=== PATIENT | male | born 1950 | race Caucasian/White ===

== ENCOUNTER 2017-03-27 12:36 | Inpatient (IN) ==
[2017-03-27] MEDS: Nitroglycerin 0.4 MG TAB.SUBL SL PRN ×3 (13:02→13:12)
[2017-03-27 13:11] LABS: Basophils # 0.1 K/mcL (0.0-0.2); Eosinophils # 0.5 K/mcL (0.0-0.6); Hematocrit 34.2 % (37.5-50.1); Immature Granulocytes % 0.3 % (0-4); Lymphocytes # 1.3 K/mcL (0.6-4.6); Lymphocytes % 18.5 %; Mean Corpuscular HGB Conc 32.2 g/dL (31.6-35.5); Mean Corpuscular Hemoglobin 29.3 pg (28.0-33.3); Mean Corpuscular Volume 91.2 fL (83.0-100.0); Mean Platelet Volume 9.7 fL (9.4-12.4); Monocytes # 0.6 K/mcL (0.0-1.3); Neutrophils # 4.6 K/mcL (1.6-8.9); Platelet Count 301 K/mcL (140-400); Red Blood Count 3.75 M/mcL (4.19-5.50); Red Cell Distribution Width 14.9 % (11.5-14.5); Segmented Neutrophils % 64.2 %
[2017-03-27 13:22] LABS: BUN/Creatinine Ratio 15 (6-26); Blood Urea Nitrogen 14 mg/dL (8-26); Calcium 8.5 mg/dL (8.6-10.8); Carbon Dioxide 25 mEq/L (19-29); Chloride 110 mEq/L (98-109); Glucose 90 mg/dL (70-99); Osmolality,Calculated 290 (280-300); Potassium 4.4 mEq/L (3.5-4.5); Sodium 140 mEq/L (136-145); eGFR For African Americans > 60 (> 60); eGFR For Non-African Americans > 60 (> 60)
--- NOTE | 2017-03-27 13:30 | Emergency Department Note ---
Disposition Clinical Impression: Dizziness Chest pain Qualifiers: Chest pain type: unspecified Qualified Code(s): R07.9 - Chest pain, unspecified Disposition: Admitted As Inpatient Condition: Good Time of Disposition: 14:37 General Adult HPI - General Chief complaint: ED Shortness of Breath/Dyspnea Stated complaint: CP, SOB, dizziness Time Seen by Provider: 03/27/17 12:43 Source: patient Mode of arrival: ambulatory Limitations: no limitations Nursing Notes Reviewed: Yes Vital Signs Reviewed: Yes - History of Present Illness HPI Narrative: 66-year-old male presenting to the emergency Department chief complaint of dizziness and chest pain. Patient has a significant past medical history MS and 2 stent placement in July 2015. Patient is currently on Proventil and an aspirin daily. Patient states today while he was standing in his driveway just prior to arrival he started feeling faint. He denies diaphoresis nausea or vomiting. Then while on his way to the emergency department he started having left-sided chest pain. The pain does not radiate down either arm. Patient denies any recent illnesses. Patient denies shortness of breath. Patient states these symptoms were different than his previous MS. His previous MS presented with left sided neck and jaw pain. Patient still states he is having chest pain at this time. Pain Scale: 0 - Related Data Home Medications Medication Instructions Recorded Confirmed Aspirin [Lo-Dose Aspirin EC] 81 mg PO DAILY 03/27/17 03/27/17 Brimonidine Tartrate/Timolol 1 drop BOTH EYES BID 03/27/17 03/27/17 [Combigan 0.2%-0.5% Eye Drops] Latanoprost [Xalatan] 1 drop BOTH EYES QPM 03/27/17 03/27/17 Lisinopril [Lisinopril] 2.5 mg PO DAILY 03/27/17 03/27/17 Ticagrelor [Brilinta] 60 mg PO BID 03/27/17 03/27/17 Allergies Allergy/AdvReac Type Severity Reaction Status Date / Time ciprofloxacin [From Cipro] Allergy Weakness Verified 03/27/17 12:41 All systems ED: reviewed and negative except as stated. Constitutional: Denies: fever, chills Eyes: Reports: as per HPI ENT ED: Reports: as per HPI Cardiovascular: Reports: chest pain. Denies: palpitations, dyspnea on exertion Respiratory: Denies: cough, dyspnea, wheezes Gastrointestinal: Denies: abdominal pain, nausea, vomiting Genitourinary: Reports: as per HPI Musculoskeletal: Reports: as per HPI Integumentary: Reports: as per HPI Neurological: Reports: weakness. Denies: numbness, paresthesias Psychiatric: Reports: as per HPI Endocrine: Reports: as per HPI Hematological/Lymphatic: Reports: as per HPI Allergic/Immunologic: Reports: as per HPI Past Medical History - Past Medical History Attestation: Yes The following information was validated with the patient. Medical history: Reports: RA Psychiatric history: Reports: no psych history - Social History Smoking Status: Former smoker Smokeless Tobacco Status: No Alcohol use: Reports: none Drug use: Reports: none Physical Exam - General General appearance: alert, in no apparent distress - Head Head exam: atraumatic, normocephalic, normal inspection - Chest Chest inspection: Present: normal inspection, symmetric chest wall rise. Absent : tenderness, rash - Respiratory Respiratory exam: Present: normal lung sounds bilaterally. Absent: respiratory distress, wheezes - Cardiovascular Cardiovascular exam: Present: regular rate, normal rhythm, normal heart sounds - Abdominal Exam Abdominal exam: Present: soft, Non-Tender. Absent: distention, guarding, rebound - Extremities Exam Extremities exam: Present: normal inspection, full ROM - Neurological Exam Neurological exam: Present: alert, oriented X3 - Psychiatric Psychiatric exam: Present: normal affect, normal mood - Skin Skin exam: Present: warm, intact Course Course Narrative: 66-year-old male with significant past medical history of previous MS presents to the emergency department with dizziness and chest pain. No chest pain workup including EKG, troponin, BNP, CBC, BMP. Patient is having chest pain at this time therefore we will also start a nitroglycerin trial. Patient already took his full dose aspirin this morning. - Reevaluation(s) Reevaluation #1: All the patient's lab work has come back within normal limits. Although the patient's heart score is greater than the usual admit the patient for cardiac chest pain rule out. Page out to the hospitalist has been completed. Patient now complaining of return of his chest pain. We will start a nitro drip. Time: 14:09 Reevaluation #2: Hospitalist Dr. Nguyen except the patient. He would like us to consult cardiology as well. A call to cardiology has been completed. Time: 14:24 Reevaluation #3: Spoke with the plant protection supervisor on-call Dr. Calhoun who would like us to start the patient on a heparin drip. He suggests trending troponin enzymes and completing an echo for this patient. Time: 14:36 Vital Signs Temperature 98.4 F 03/27/17 12:37 Pulse Rate 55 03/27/17 12:37 Respiratory Rate 18 03/27/17 12:37 Blood Pressure 133/83 03/27/17 12:37 O2 Sat by Pulse Oximetry 99 03/27/17 12:37 Temperature 98.4 F 03/27/17 19:28 Pulse Rate 52 03/27/17 19:28 Respiratory Rate 15 03/27/17 19:28 Blood Pressure 129/74 03/27/17 19:28 O2 Sat by Pulse Oximetry 96 03/27/17 20:18 Oxygen Delivery Oxygen Delivery Room Air Medical Decision Making - Medical Records Medical records reviewed: Yes I reviewed the patient's medical records. - Lab Data Lab results reviewed: Yes I reviewed the patient's lab results. Result diagrams: 03/27/17 12:58 03/27/17 12:58 Lab Results 03/27/17 03/27/17 03/27/17 Range/Units 12:58 12:58 12:58 WBC 7.1 (4.3-11.1) K/mcL RBC 3.75 L (4.19-5.50) M/mcL Hgb 11.0 L (12.9-16.9) g/dL Hct 34.2 L (37.5-50.1) % MCV 91.2 (83.0-100.0) fL MCH 29.3 (28.0-33.3) pg MCHC 32.2 (31.6-35.5) g/dL RDW 14.9 H (11.5-14.5) % Plt Count 301 (140-400) K/mcL MPV 9.7 (9.4-12.4) fL Immature Gran % 0.3 (0-4) % Seg Neutrophils % 64.2 % Lymphocytes % 18.5 % Monocytes % 9.0 % Eosinophils % 7.0 % Basophils % 1.0 % Neutrophils # 4.6 (1.6-8.9) K/mcL Lymphocytes # 1.3 (0.6-4.6) K/mcL Monocytes # 0.6 (0.0-1.3) K/mcL Eosinophils # 0.5 (0.0-0.6) K/mcL Basophils # 0.1 (0.0-0.2) K/mcL PT 12.3 H (9.4-12.1) Seconds INR 1.1 APTT 30.6 (26.0-36.0) Seconds Sodium 140 (136-145) mEq/L Potassium 4.4 (3.5-4.5) mEq/L Chloride 110 H (98-109) mEq/L Carbon Dioxide 25 (19-29) mEq/L BUN 14 (8-26) mg/dL Creatinine 0.93 (0.72-1.25) mg/dL Est GFR ( Amer) > 60 (> 60) Est GFR (Non-Af Amer) > 60 (> 60) BUN/Creatinine Ratio 15 (6-26) Glucose 90 (70-99) mg/dL Calculated Osmolality 290 (280-300) Calcium 8.5 L (8.6-10.8) mg/dL Troponin I (0-0.03) ng/mL 03/27/17 Range/Units 12:58 WBC (4.3-11.1) K/mcL RBC (4.19-5.50) M/mcL Hgb (12.9-16.9) g/dL Hct (37.5-50.1) % MCV (83.0-100.0) fL MCH (28.0-33.3) pg MCHC (31.6-35.5) g/dL RDW (11.5-14.5) % Plt Count (140-400) K/mcL MPV (9.4-12.4) fL Immature Gran % (0-4) % Seg Neutrophils % % Lymphocytes % % Monocytes % % Eosinophils % % Basophils % % Neutrophils # (1.6-8.9) K/mcL Lymphocytes # (0.6-4.6) K/mcL Monocytes # (0.0-1.3) K/mcL Eosinophils # (0.0-0.6) K/mcL Basophils # (0.0-0.2) K/mcL PT (9.4-12.1) Seconds INR APTT (26.0-36.0) Seconds Sodium (136-145) mEq/L Potassium (3.5-4.5) mEq/L Chloride (98-109) mEq/L Carbon Dioxide (19-29) mEq/L BUN (8-26) mg/dL Creatinine (0.72-1.25) mg/dL Est GFR ( Amer) (> 60) Est GFR (Non-Af Amer) (> 60) BUN/Creatinine Ratio (6-26) Glucose (70-99) mg/dL Calculated Osmolality (280-300) Calcium (8.6-10.8) mg/dL Troponin I 0.00 (0-0.03) ng/mL - Radiology Data Radiology results reviewed: Yes I reviewed the patient's radiology results. - EKG Data EKG #1 EKG attestation: Yes I reviewed and interpreted this EKG. EKG results narrative: Sinus bradycardia. 54 bpm. NH 189, QRS 92, QTC 379. Poor R-wave progression. Nonspecific EKG in V1 and 2 and 3. EKG #2 EKG attestation: Yes I reviewed and interpreted this EKG. EKG results narrative: Sinus bradycardia. 56 bpm. NH interval 166, QRS 91, QTC 393. Normal axis. Poor R-wave progression noted. Nonspecific changes in V1, V2, V3 previously seen in EKG completed 26 minutes prior. Attestation Statement - Attestation Attestation: I examined this patient and my medical decision-making was reviewed with the Resident Physician. I agree with the documented findings, disposition and treatment plan as described except to the extent set forth below. Chest pain, typical symptoms. EKG is currently without STEMI. Aspirin, heparin, nitroglycerin provided. Cardiac consultation initiated. Patiently admitted for further evaluation.
[2017-03-27 13:44] LABS: INR 1.1; Prothrombin Time 12.3 Seconds (9.4-12.1)
[2017-03-27 13:46] LABS: Activated Partial Thrombo Time 30.6 Seconds (26.0-36.0)
[2017-03-27] MEDS ORDERED: Nitroglycerin 25 MG/250 ML INFUS..BTL IVC SCH (14:15)
[2017-03-27] MEDS ORDERED: *HR* Heparin 5,000 UNIT/ML VIAL IVP ONE (14:35)
[2017-03-27] MEDS ORDERED: *HR* Heparin 5,000 UNIT/ML VIAL IVP PRN ×2 (14:35)
[2017-03-27] MEDS ORDERED: Heparin 25,000 UNIT/500 ML D5W 25,000 UNIT/500 ML MLS IVC SCH (14:45)
[2017-03-27] MEDS ORDERED: 0.9 % Sodium Chloride 1,000 ML ONE (15:11)
--- NOTE | 2017-03-27 15:53 | Internal Med History&Physical ---
Date of Encounter: 03/27/17 Time of Encounter: 15:50 Assessment and Plan (1) Coronary artery disease Current visit: Yes Status: Acute Continue aspirin, Brilinta. Start statin and beta dominic. Qualifiers: Coronary Disease-Associated Artery/Lesion type: [place] artery [place] vs. transplanted heart: [place] heart Associated angina: with unstable angina Qualified Code(s): I25.110 - Atherosclerotic heart disease of [place] coronary artery with unstable angina pectoris (2) Essential hypertension Current visit: Yes Status: Acute We will continue with lisinopril and uptitrate to goal. (3) Unstable angina Current visit: Yes Status: Acute Patient with recurrent chest pain, history of CAD with 2 stents. Start heparin drip. Start nitro drip. Trend troponin. Cardiology consult. Echocardiogram. Nothing by mouth for possible need for acute further testing tomorrow. (4) Anemia Current visit: Yes Status: Acute Qualifiers: Anemia type: unspecified type Qualified Code(s): D64.9 - Anemia, unspecified Internal Medicine - H&P: HPI Chief complaint: Chest pain Admitted From: Emergency Dept Plans for Post Hospital Care: Home History of present illness: Mr. Garay is a 66 year old male with history of CAD, status post [place] and 2 stents placed in July 2015. He reported shortness of breath that started late this morning and chest pain that started at 12 10 in the afternoon. Pain was located in the left upper chest, rated 6/10, aching, worse with ambulation and associated with shortness of breath. The pain resolved after administration of nitroglycerin, however it soon recurred and currently is 3/10. EKG was nondiagnostic, troponin was negative and ED. A 10 point review of systems was negative except per history of present illness. Family history: Positive for CHF in patient's father and stroke in the patient' s mother Social history: Reformed smoker quit one year and half ago, previously 1 pack a day smoker. Denies alcohol and drug use. Past Med Surg Social Fam HX - Past Medical History Medical history: RA Psychiatric history: no psych history - Social History Smoking Status: Former smoker Smokeless Tobacco Status: No Alcohol use: none Drug use: none Internal Medicine - H&P: Meds Aspirin [Lo-Dose Aspirin EC] 81 mg PO DAILY 03/27/17 [History] Brimonidine Tartrate/Timolol [Combigan 0.2%-0.5% Eye Drops] 1 drop BOTH EYES BID 03/27/17 [History] Latanoprost [Xalatan] 1 drop BOTH EYES QPM 03/27/17 [History] Lisinopril [Lisinopril] 2.5 mg PO DAILY 03/27/17 [History] Ticagrelor [Brilinta] 60 mg PO BID 03/27/17 [History] 3 Allergy/AdvReac Type Severity Reaction Status Date / Time ciprofloxacin [From Cipro] Allergy Weakness Verified 03/27/17 12:41 All Systems PM: A 10-system review of systems was performed and is negative for pertinent findings except as documented above in the HPI. - Constitutional Vitals: Temp Pulse Resp BP Pulse Ox 98.4 F 52 16 131/76 100 03/27/17 12:37 03/27/17 15:26 03/27/17 15:26 03/27/17 15:26 03/27/17 15:26 General appearance: Present: A&O X 3 - Eye Eye exam: Present: PERRL, conjuntiva pink, sclera anicteric Pupils: Present: PERRL - Respiratory Respiratory exam: Present: CTAB. Absent: accessory muscle use, rales, rhonchi, wheezes - Cardiovascular Cardiovascular exam: Present: bradycardia, +S1, +S2. Absent: diastolic murmur, gallop, rubs, systolic murmur - GI/Abdominal GI/Abdominal exam: Present: normal bowel sounds, soft, no peritoneal signs. Absent: distended, tenderness - Extremities Exam Extremities exam: Present: warm, radial pulses palpable and symmetrical. Absent : calf tenderness, cyanotic, pedal edema - Neurological Exam Neurological exam: Present: CN II-XII intact, oriented X3, no focal deficits. Absent: pronater drift, facial droop, speech deficit - Skin Skin exam: Present: dry, intact Internal Med - H&P Results - Labs CBC & Chem 7: 03/27/17 12:58 03/27/17 12:58 - EKG Data -: EKG Interpreted by Myself EKG shows normal: sinus rhythm, axis, intervals, QRS complexes, ST-T waves Rate: bradycardia
[2017-03-27] MEDS ORDERED: Naloxone 0.4 MG/ML INJ IVP PRN (17:16)
[2017-03-27] MEDS ORDERED: Ondansetron 4 MG/2 ML VIAL IVP PRN (17:16)
[2017-03-27] MEDS ORDERED: 0.9 % Sodium Chloride 1,000 ML IVC SCH (17:30)
[2017-03-27] MEDS: Latanoprost 2.5 ML BOTTLE BOTH EYES SCH (20:09)
[2017-03-27] MEDS: TICAGRELOR 60 MG PO SCH (20:12)
[2017-03-27] MEDS ORDERED: NON-FORMULARY MEDICATION 1 EACH EACH (Brimonidine Tartrate/Timolol [Combigan 0.2%-0.5% Eye BOTH EYES SCH (21:00)
[2017-03-27] MEDS: Acetaminophen 325 MG TABLET PO PRN (21:36)
[2017-03-28 01:32] LABS: Basophils # 0.1 K/mcL (0.0-0.2); Basophils % 1.1 %; Eosinophils # 0.5 K/mcL (0.0-0.6); Eosinophils % 7.8 %; Hemoglobin 9.8 g/dL (12.9-16.9); Immature Granulocytes % 0.5 % (0-4); Lymphocytes # 1.8 K/mcL (0.6-4.6); Lymphocytes % 27.9 %; Mean Corpuscular HGB Conc 32.7 g/dL (31.6-35.5); Mean Corpuscular Hemoglobin 29.3 pg (28.0-33.3); Mean Corpuscular Volume 89.8 fL (83.0-100.0); Mean Platelet Volume 9.8 fL (9.4-12.4); Monocytes # 0.7 K/mcL (0.0-1.3); Monocytes % 10.5 %; Neutrophils # 3.4 K/mcL (1.6-8.9); Platelet Count 289 K/mcL (140-400); Red Blood Count 3.34 M/mcL (4.19-5.50); Red Cell Distribution Width 14.8 % (11.5-14.5); Segmented Neutrophils % 52.2 %
[2017-03-28 01:50] LABS: % Iron Saturation 16 % (20-55); BUN/Creatinine Ratio 14 (6-26); Blood Urea Nitrogen 14 mg/dL (8-26); Calcium 8.7 mg/dL (8.6-10.8); Carbon Dioxide 24 mEq/L (19-29); Chloride 107 mEq/L (98-109); Chol/HDL Ratio 2.7 (0-4.9); Cholesterol 91 mg/dL (< 200); Glucose 114 mg/dL (70-99); HDL Cholesterol 34 mg/dL (40-59); Iron 43 mcg/dL (65-175); LDL Cholesterol,Calculated 46 mg/dL (0-99); Magnesium 1.6 mg/dL (1.6-2.6); Osmolality,Calculated 291 (280-300); Potassium 3.8 mEq/L (3.5-4.5); Sodium 140 mEq/L (136-145); Transferrin 192 mg/dL (174-364); Triglycerides 55 mg/dL (< 150); eGFR For African Americans > 60 (> 60); eGFR For Non-African Americans > 60 (> 60)
[2017-03-28] MEDS: Acetaminophen 325 MG TABLET PO PRN ×3 (04:43→16:46)
[2017-03-28] MEDS: *HR* Ticagrelor 90 MG TABLET PO SCH ×2 (10:16→22:11)
[2017-03-28] MEDS: Aspirin Enteric Coated 81 MG Tablet PO SCH (10:16)
--- NOTE | 2017-03-28 11:03 | Internal Med Progress Note ---
<Logan Keane - Last Filed: 03/28/17 17:16> Date of Encounter: 03/28/17 Time of Encounter: 08:30 - Assessment and plan (1) Chest pain Current Visit: Yes Status: Resolved Assessment and plan: Substernal chest pain, resolved 3 with shortness of breath or standing in chest pain at rest, relieved by nitroglycerin The patient did not have exertional symptoms Troponins were negative 3 EKG was within normal limits Stress echo completed by cardiology: Left ventricular ejection fraction 59%, negative for ischemia. TTE in the morning Cardiology has signed off Likely D/C tomorrow Qualifiers: Chest pain type: unspecified Qualified Code(s): R07.9 - Chest pain, unspecified (2) Coronary artery disease Current Visit: Yes Status: Chronic Assessment and plan: Known CAD with an STEMI and left heart catheterization 07/2015 Mehn[place] s/p stentx2 Echocardiogram pending, stress echo was negative for ischemia On aspirin, kathleen and Brilinta , not on beta dominic due to bradycardia Risks and benefits of statin will be discussed with patient in the morning Patient will follow up with cardiology as outpatient Qualifiers: Coronary Disease-Associated Artery/Lesion type: [place] artery [place] vs. transplanted heart: [place] heart Associated angina: with unspecified angina Qualified Code(s): I25.119 - Atherosclerotic heart disease of [place] coronary artery with unspecified angina pectoris (3) Essential hypertension Current Visit: Yes Status: Acute Assessment and plan: Blood pressure well controlled on current medication regimen (4) Anemia Current Visit: Yes Status: Acute Assessment and plan: Acute anemia, likely iron deficiency Patient reports no blood loss to his knowledge, no melena, no bright red blood per rectum Patient was on heparin at time of admission, transition back to brilinta We will check CBC in the morning, consider GI consult Qualifiers: Anemia type: unspecified type Qualified Code(s): D64.9 - Anemia, unspecified (5) DVT prophylaxis Current Visit: Yes Status: Acute Assessment and plan: Subcutaneous heparin - Subjective Interval history: The patient is resting comfortably in bed at time of examination, he has not had any chest pains overnight and shortness of breath is resolved. He says that the pain that he experiences not the same as the pain that he had previously with a [place]. - Constitutional Vitals: Temp Pulse Resp BP Pulse Ox 97.7 F 61 12 110/64 94 10/17/17 06:16 03/28/17 06:16 03/28/17 06:16 03/28/17 06:16 03/28/17 06:16 General appearance: Present: A&O X 3 - Head Head exam: Present: atraumatic, normocephalic - Eye Eye exam: Present: PERRL, conjuntiva pink, sclera anicteric Pupils: Present: PERRL - Neck Neck exam general surgery: Present: supple, trachea midline. Absent: lymphadenopathy - Respiratory Respiratory exam: Present: CTAB. Absent: accessory muscle use, rales, rhonchi, wheezes - Cardiovascular Cardiovascular exam: Present: RRR, +S1, +S2. Absent: diastolic murmur, gallop, rubs, systolic murmur - GI/Abdominal GI/Abdominal exam: Present: normal bowel sounds, soft, no peritoneal signs. Absent: distended, tenderness - Extremities Exam Extremities exam: Present: warm, radial pulses palpable and symmetrical. Absent : calf tenderness, cyanotic, pedal edema - Neurological Exam Neurological exam: Present: CN II-XII intact, oriented X3, no focal deficits. Absent: pronater drift, facial droop, speech deficit - Skin Skin exam: Present: dry, intact Internal Medicine: Result - Labs CBC & Chem 7: 03/28/17 01:08 03/28/17 01:08 Labs: Short CBC 03/28/17 Range/Units 01:08 WBC 6.5 (4.3-11.1) K/mcL Hgb 9.8 L (12.9-16.9) g/dL Hct 30.0 L (37.5-50.1) % Plt Count 289 (140-400) K/mcL Neutrophils # 3.4 (1.6-8.9) K/mcL BMP 03/28/17 01:08 Sodium 140 Potassium 3.8 Chloride 107 Carbon Dioxide 24 BUN 14 Creatinine 1.03 Glucose 114 H Calcium 8.7 Cardiac Enzymes 03/27/17 03/28/17 Range/Units 18:00 01:08 Troponin I 0.00 0.00 (0-0.03) ng/mL - ABG Interpretation ABG results: PT/INR, D-dimer PT 12.3 Seconds (9.4-12.1) H 03/27/17 12:58 Consult Discharge Plan - Plan Referrals: April Bauer MD [Partnered Physician] - (CARDIOLOGY OFFICE WILL CONTACT YOU WITH FOLLOW UP APPOINTMENT) Seven Calles DO [Primary Care Provider] - <GlennTobi A - Last Filed: 03/28/17 18:21> Date of Encounter: 03/28/17 - Assessment and plan (1) Unstable angina Current Visit: Yes Status: Acute (2) Essential hypertension Current Visit: Yes Status: Chronic (3) Coronary artery disease Current Visit: Yes Status: Chronic Qualifiers: Coronary Disease-Associated Artery/Lesion type: [place] artery [place] vs. transplanted heart: [place] heart Associated angina: with unstable angina Qualified Code(s): I25.110 - Atherosclerotic heart disease of [place] coronary artery with unstable angina pectoris (4) Anemia Current Visit: Yes Status: Acute Qualifiers: Anemia type: unspecified type Qualified Code(s): D64.9 - Anemia, unspecified - Constitutional Vitals: Temp Pulse Resp BP Pulse Ox 97.9 F 58 12 129/81 98 03/28/17 15:10 03/28/17 15:10 03/28/17 15:10 03/28/17 15:45 03/28/17 15:10 Internal Medicine: Result - Labs CBC & Chem 7: 03/28/17 01:08 03/28/17 01:08 Labs: Short CBC 03/28/17 Range/Units 01:08 WBC 6.5 (4.3-11.1) K/mcL Hgb 9.8 L (12.9-16.9) g/dL Hct 30.0 L (37.5-50.1) % Plt Count 289 (140-400) K/mcL Neutrophils # 3.4 (1.6-8.9) K/mcL BMP 03/28/17 01:08 Sodium 140 Potassium 3.8 Chloride 107 Carbon Dioxide 24 BUN 14 Creatinine 1.03 Glucose 114 H Calcium 8.7 Cardiac Enzymes 03/27/17 03/28/17 Range/Units 18:00 01:08 Troponin I 0.00 0.00 (0-0.03) ng/mL - ABG Interpretation ABG results: PT/INR, D-dimer PT 12.3 Seconds (9.4-12.1) H 03/27/17 12:58 - Attending Attestation I examined this patient and my medical decision-making was reviewed with the Resident Physician on 03/28/17. I agree with the documented findings, disposition and treatment plan as described except to the extent set forth below. Mr Garay is currently admitted for chest pain, [facility]. He remains moderate to high risk due to potential for worsening cardiac status. Mr Garay is currently pain free. No fever or chills. Had stress which is negative. To have echo today. Exam Alert Comfortable Hear reg No wheeze No edema I/P 1. [place] 2. CAD Further diagnoses and plan as above. Anticipate d/c tomorrow after echo reported.
[2017-03-28] MEDS: TICAGRELOR 60 MG PO SCH (11:20)
[2017-03-28] MEDS ORDERED: Regadenoson 0.4 MG/5 ML SYRINGE IVP ONE (11:51)
--- NOTE | 2017-03-28 12:52 | Cardiology Consult Note ---
Date of Encounter: 03/28/17 Time of Encounter: 10:00 Assessment and Plan (1) Chest pain Current Visit: Yes Status: Acute Per cardiology: -Admitted with shortness of breath while standing and chest pain while at rest. -Denies exertional symptoms -Troponins negative x3. -ECG with no acute ischemic changes. -Denies current chest pain. -Discussed at length with patient and . They are agreeable for low level nuclear stress test. Will order. -Further recommendations pending stress. Qualifiers: Chest pain type: unspecified Qualified Code(s): R07.9 - Chest pain, unspecified (2) Coronary artery disease Current Visit: Yes Status: Chronic Per cardiology: -Known CAD with NSTEMI and LHC 07/2015 at [facility]. Had intervention to proximal LAD, then underwent staged PCI to RCA and PDA. Has remaining moderate CAD. -Echo pending. -On asa, and brilinta, Not on beta dominic due to bradycardia. -No statin listed on medication list. -Echo pending. -Stress pending. -Will discuss with pateint and regarding statin therapy. -Further recommendations pending stress and echo. -Will continue to monitor. Qualifiers: Coronary Disease-Associated Artery/Lesion type: [place] artery [place] vs. transplanted heart: [place] heart Associated angina: with unspecified angina Qualified Code(s): I25.119 - Atherosclerotic heart disease of [place] coronary artery with unspecified angina pectoris Discussion w patient/family: The assessment and plan as outlined above was discussed with the patient and/or family members who expressed understanding and agreement. All questions were answered. Thank you for involving us in the care of your patient. Please call with any questions. Discussed and reviewed with . History of Present Illness Consult date: 03/27/17 Requesting physician: Aubrie Kapoor Consult reason: chest pain Chief complaint: shortness of breath History of present illness: Mr. Garay is a 66 year old male with a relevant past medical history of NSTEMI , CAD s/p PCI, RA, psoriatic arthritis. Patient presented to [facility] with complaints of shortness of breath. Patient states he was at home standing in the driveway when he became short of breath. Patient's started to drive patient to ER, on his way to ER he had left sided chest pain that radiated to left shoulder. Patient denies current shortness of breath or chest pain. Patient states at time of NSTEMI his symptoms were left sided jaw pain that radiated to left shoulder. Patient denies these symtpoms. Patient reports two days ago was able to weed eat for 2 hours without chest pain or shortness of breath. Past Med Surg Social Fam HX - Past Medical History Attestation: Yes The following information was validated with the patient. Source: patient, old records reviewed, obtained from family Medical history: coronary artery disease, RA Psychiatric history: no psych history - Social History Smoking Status: Former smoker Smokeless Tobacco Status: No Alcohol use: none Drug use: none Medications and Allergies Aspirin [Lo-Dose Aspirin EC] 81 mg PO DAILY 03/27/17 [History] Brimonidine Tartrate/Timolol [Combigan 0.2%-0.5% Eye Drops] 1 drop BOTH EYES BID 03/27/17 [History] Latanoprost [Xalatan] 1 drop BOTH EYES QPM 03/27/17 [History] Lisinopril [Lisinopril] 2.5 mg PO DAILY 03/27/17 [History] Ticagrelor [Brilinta] 60 mg PO BID 03/27/17 [History] 3 Allergy/AdvReac Type Severity Reaction Status Date / Time ciprofloxacin [From Cipro] Allergy Weakness Verified 03/27/17 12:41 All Systems Review: A 10-system review of systems was performed and is negative for pertinent findings except as documented above in the HPI. - Cardiovascular Cardiovascular: as per HPI, chest pain at rest, dyspnea at rest Physical Examination Vital Signs, Last 4 Hours Temp Pulse Resp BP Pulse Ox 03/28/17 11:59 98.0 F 58 12 109/63 96 General: Conversant, No Apparent Distress HEENT: Atraumatic, Normocephaly, Mucus Membranes Moist Neck: No JVD, Normal carotid pulses Cardiac: Reg Rate and Rhythm, Normal S1 and S2, No Murmur Lungs: Normal Breath Sounds, No Wheeze, Rales, Rhonchi Neuro: Alert and responsive, No focal deficits noted Abdomen: Soft, Non-Tender Skin: No rashes noted on visualized skin Musculoskeletal: No Chest Wall Tenderness Extremities: No Clubbing, No Cyanosis, No Edema, Normal Pulses Results 03/28/17 01:08 03/28/17 01:08 Lab Results Impressions Chest X-Ray 03/27/17 12:48 IMPRESSION: No acute process. D/ / Logan Benavidez MD / Logan Benavidez MD Interpreting Provider: Logan Benavidez MD Active Medications Acetaminophen (Tylenol) 650 mg PO Q6HR PRN PRN Reason: Mild Pain (1-3) Stop: 09/26/17 17:17 Last Admin: 03/28/17 10:15 Dose: 650 mg Aspirin (Aspirin Ec) 81 mg PO DAILY MANOHAR Stop: 09/27/17 09:01 Last Admin: 03/28/17 10:16 Dose: 81 mg Brimonidine Tartrate (Alphagan) 1 drop BOTH EYES BID MANOHAR Stop: 09/26/17 21:01 Last Admin: 03/28/17 11:20 Dose: 1 drop Heparin Sodium (Porcine) (Heparin) 4,000 unit IVP Q6HR PRN PRN Reason: SEE COMMENTS Stop: 09/26/17 14:36 Heparin Sodium (Porcine) (Heparin) 2,000 unit IVP Q6H PRN PRN Reason: SEE COMMENTS Stop: 09/26/17 14:36 Last Admin: 03/28/17 07:04 Dose: 2,000 unit Heparin Sodium/Dextrose (Heparin 25,000 Unit/500 Ml D5w) 25,000 unit in 500 mls @ 21.772 mls/hr IVC .[id number] MANOHAR; 12 UNIT/KG/HR PRN Reason: Protocol Stop: 09/26/17 14:46 Last Titration: 03/28/17 10:30 Dose: 0 unit/kg/hr, 0 mls/hr Latanoprost (Xalatan) 1 drop BOTH EYES QPM MANOHAR PRN Reason: Protocol Stop: 09/26/17 18:01 Last Admin: 03/27/17 20:09 Dose: Not Given Lisinopril (Zestril) 2.5 mg PO DAILY [facility] Stop: 09/27/17 09:01 Naloxone HCl (Narcan) 0.4 mg IVP Q2MIN PRN PRN Reason: Opioid Reversal Stop: 09/26/17 17:17 Nitroglycerin (Nitroglycerin) 0.4 mg SL Q5MIN PRN PRN Reason: Chest Pain Stop: 09/26/17 12:50 Last Admin: 03/27/17 13:12 Dose: 0.4 mg Ondansetron HCl (Zofran) 4 mg IVP Q8HR PRN PRN Reason: Nausea And Vomiting Stop: 09/26/17 17:17 Oxycodone HCl (Roxicodone) 5 mg PO Q6HR PRN PRN Reason: Moderate Pain (4-6) Stop: 09/26/17 17:17 Pharmacy Profile Note (Patient Taking Own Medication) 0 each PO BID [facility] Stop: 09/26/17 21:01 Last Admin: 03/28/17 11:20 Dose: Not Given Ticagrelor (Brilinta) 90 mg PO BID [facility] Stop: 09/27/17 09:46 Last Admin: 03/28/17 10:16 Dose: 90 mg Timolol Maleate (Timolol Maleate 0.5%) 1 drop BOTH EYES BID [facility] Stop: 09/26/17 21:01 Last Admin: 03/28/17 11:19 Dose: 1 drop Laboratory Tests 03/27/17 03/27/17 03/28/17 12:58 18:00 01:08 Hgb Creatinine Troponin I 0.00 0.00 0.00 03/28/17 03/28/17 01:08 01:08 Hgb 9.8 L Creatinine 1.03 Troponin I - Imaging and Cardiology Chest Xray: report reviewed Stress Test: pending Echo: pending Cardiac cath: report reviewed - EKG Interpretation EKG results cardiology: personally reviewed (ECG with SB, HR 54,), other ( Telemetry reviewed with average HR previous 12 hours noted to be 56, sinus bradycardia. PVCs and PACs noted.) Consult Discharge Plan - Plan Referrals: Seven Calles DO [Primary Care Provider] -
--- NOTE | 2017-03-28 12:54 | Electrocardiograph Report ---
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
--- NOTE | 2017-03-28 15:30 | Event Note ---
Date of Encounter: 03/28/17 Time of Encounter: 15:28 - Cardiology Event Note Stress test resulted. Gated EF 59%. Medium sized, moderate-severe intensity, fixed mid inferior, all apical segments and apex. Perfusion is slightly worse on rest imaging and wall motion appears normal. Findings suggestive of artifact. Perfusion imaging is negative for ischemia. Cardiology is signing off. Reconsult PRN. Follow-up as outpt with Dr. April Bauer. Will coordinate.
[2017-03-28] MEDS: Latanoprost 2.5 ML BOTTLE BOTH EYES SCH (22:12)
[2017-03-28] MEDS: *HR* OxyCODONE Immed Rel 5 MG TABLET PO PRN (22:15)
[2017-03-29 03:51] LABS: Basophils % 0.7 %; Eosinophils # 0.4 K/mcL (0.0-0.6); Eosinophils % 6.6 %; Hematocrit 30.9 % (37.5-50.1); Hemoglobin 10.2 g/dL (12.9-16.9); Immature Granulocytes % 0.3 % (0-4); Lymphocytes # 1.3 K/mcL (0.6-4.6); Lymphocytes % 22.4 %; Mean Corpuscular Hemoglobin 29.7 pg (28.0-33.3); Mean Corpuscular Volume 90.1 fL (83.0-100.0); Mean Platelet Volume 9.9 fL (9.4-12.4); Monocytes # 0.6 K/mcL (0.0-1.3); Monocytes % 10.6 %; Neutrophils # 3.5 K/mcL (1.6-8.9); Platelet Count 318 K/mcL (140-400); Red Blood Count 3.43 M/mcL (4.19-5.50); Red Cell Distribution Width 14.7 % (11.5-14.5); Segmented Neutrophils % 59.4 %
[2017-03-29 04:07] LABS: BUN/Creatinine Ratio 17 (6-26); Blood Urea Nitrogen 15 mg/dL (8-26); Carbon Dioxide 24 mEq/L (19-29); Chloride 107 mEq/L (98-109); Glucose 87 mg/dL (70-99); Osmolality,Calculated 286 (280-300); Potassium 4.1 mEq/L (3.5-4.5); Sodium 138 mEq/L (136-145); eGFR For African Americans > 60 (> 60); eGFR For Non-African Americans > 60 (> 60)
[2017-03-29 07:00] VITALS: BP 119/73
--- NOTE | 2017-03-29 08:08 | Event Note ---
Date of Encounter: 03/28/17 Time of Encounter: 17:40 - Cardiology Event Note I personally spoke with patient and regarding nuclear stress test results. All questions answered. Awaiting echo results. Will discuss echo results with pateint and family when available. Patient and state understanding.
[2017-03-29] MEDS: Aspirin Enteric Coated 81 MG Tablet PO SCH (09:14)
[2017-03-29] MEDS: *HR* Ticagrelor 90 MG TABLET PO SCH (09:14)
[2017-03-29] MEDS: *HR* OxyCODONE Immed Rel 5 MG TABLET PO PRN (09:15)
--- NOTE | 2017-03-29 10:31 | Discharge Summary ---
<Logan Keane - Last Filed: 03/29/17 16:03> Date of Encounter: 03/29/17 Time of Encounter: 08:15 - Discharge Diagnosis (1) Chest pain Priority: Primary Status: Resolved Qualifiers: Chest pain type: unspecified Qualified Code(s): R07.9 - Chest pain, unspecified (2) Coronary artery disease Priority: Secondary Status: Chronic Qualifiers: Coronary Disease-Associated Artery/Lesion type: [place] artery [place] vs. transplanted heart: [place] heart Associated angina: with unstable angina Qualified Code(s): I25.110 - Atherosclerotic heart disease of [place] coronary artery with unstable angina pectoris (3) Essential hypertension Priority: Secondary Status: Chronic (4) Anemia Priority: Secondary Status: Acute Qualifiers: Anemia type: unspecified type Qualified Code(s): D64.9 - Anemia, unspecified (5) DVT prophylaxis Priority: Secondary Status: Acute - Discharge Medications Prescriptions: Ticagrelor [Brilinta] 90 mg PO BID #30 tablet Home Medications: Aspirin [Lo-Dose Aspirin EC] 81 mg PO DAILY 03/27/17 [History] Brimonidine Tartrate/Timolol [Combigan 0.2%-0.5% Eye Drops] 1 drop BOTH EYES BID 03/27/17 [History] Latanoprost [Xalatan] 1 drop BOTH EYES QPM 03/27/17 [History] Lisinopril 2.5 mg PO DAILY 03/27/17 [History] Ticagrelor [Brilinta] 90 mg PO BID #30 tablet 03/29/17 [Rx] Allergies/Adverse Reactions: 3 Allergy/AdvReac Type Severity Reaction Status Date / Time ciprofloxacin [From Cipro] Allergy Weakness Verified 03/27/17 12:41 Procedures/tests Complete & Pending: Procedures Performed prior 72 hours Category Date Time Status NM anthony perf SPECT multi [NM] Routine Exams 03/28/17 12:10 Taken EV echocardiogram Routine Y 03/28/17 09:22 Completed SP pharm nuclear stress Routine Y 03/28/17 12:10 Completed Date of admission: 03/27/17 17:16 Primary care physician: Seven Calles DO Discharging clinician: Logan Keane Anticipated date of discharge: 03/29/17 - Patient Status Disposition: Home, Self-Care Condition: Good Functional capacity at discharge: independent ambulation Overall status at discharge: patient is progressing back to baseline - Discharge Instructions Instructions: Ticagrelor (By mouth), Chest Pain (DC) Follow Up With: April Bauer MD [Partnered Physician] - (CARDIOLOGY OFFICE WILL CONTACT YOU WITH FOLLOW UP APPOINTMENT) Seven Calles DO [Primary Care Provider] - 04/06/17 1:00 pm Additional Instructions: Follow up with PCP within one week Follow up with Cardiology as directed Brilinta 90mg Daily - Diet and Activity Activity: increase activity as tolerated Diet: low salt diet Hospital course: Mr. Garay is a 66 year old male with history of CAD, status post AK and 2 stents placed in July 2015. He reported shortness of breath that started late Monday morning the progress towards left-sided chest pain that lasted into the afternoon. The pain and shortness of breath seem worse with ambulation, and seemed to improve with nitroglycerin. EKG in the emergency department was nondiagnostic, troponins remained negative throughout the course. Patient was admitted for rule out of ACS. The patient was initially placed on heparin drip which was discontinued following repeated negative troponins. Repeat echo demonstrates left ventricular ejection fraction 60% with mild left ventricular diastolic dysfunction. Nuclear stress test demonstrated gaited EF 59%, and was negative for ischemia. Patient with reinitiated on brilinta, and a statin was initiated. The patient will be discharged for follow-up with cardiology outpatient. - Time Spent with Patient Total time spent providing and/or coordinating discharge services: - Constitutional Vitals: Temp Pulse Resp BP Pulse Ox 98.2 F 56 18 119/73 97 03/29/17 06:53 03/29/17 06:53 03/29/17 06:53 03/29/17 06:53 03/29/17 06:53 General appearance: Present: A&O X 3 - Head Head exam: Present: atraumatic, normocephalic - Eye Eye exam: Present: PERRL, conjuntiva pink, sclera anicteric Pupils: Present: PERRL - Neck Neck exam general surgery: Present: supple, trachea midline. Absent: lymphadenopathy - Respiratory Respiratory exam: Present: CTAB. Absent: accessory muscle use, rales, rhonchi, wheezes - Cardiovascular Cardiovascular exam: Present: RRR, +S1, +S2. Absent: diastolic murmur, gallop, rubs, systolic murmur - GI/Abdominal GI/Abdominal exam: Present: normal bowel sounds, soft, no peritoneal signs. Absent: distended, tenderness - Extremities Exam Extremities exam: Present: warm, radial pulses palpable and symmetrical. Absent : calf tenderness, cyanotic, pedal edema - Neurological Exam Neurological exam: Present: CN II-XII intact, oriented X3, no focal deficits. Absent: pronater drift, facial droop, speech deficit - Skin Skin exam: Present: dry, intact <Tobi Elizabeth - Last Filed: 03/29/17 16:42> Date of Encounter: 03/29/17 - Discharge Diagnosis (1) Unstable angina Priority: Primary Status: Acute (2) Essential hypertension Status: Chronic (3) Coronary artery disease Status: Chronic Qualifiers: Coronary Disease-Associated Artery/Lesion type: [place] artery [place] vs. transplanted heart: [place] heart Associated angina: with unstable angina Qualified Code(s): I25.110 - Atherosclerotic heart disease of [place] coronary artery with unstable angina pectoris (4) Anemia Status: Acute Qualifiers: Anemia type: unspecified type Qualified Code(s): D64.9 - Anemia, unspecified Procedures/tests Complete & Pending: Procedures Performed prior 72 hours Category Date Time Status NM anthony perf SPECT multi [NM] Routine Exams 03/28/17 12:10 Taken EV echocardiogram Routine Y 03/28/17 09:22 Completed SP pharm nuclear stress Routine Y 03/28/17 12:10 Completed Date of admission: 03/27/17 17:16 Primary care physician: Seven Calles DO Hospital course: Mr. Garay is a 66 year old male - Time Spent with Patient Total time spent providing and/or coordinating discharge services: 27min - Constitutional Vitals: Temp Pulse Resp BP Pulse Ox 98.2 F 56 18 119/73 97 03/29/17 06:53 03/29/17 06:53 03/29/17 06:53 03/29/17 06:53 03/29/17 06:53 - Attending Attestation I examined this patient and my medical decision-making was reviewed with the Resident Physician on 03/29/17. I agree with the documented findings, disposition and treatment plan as described except to the extent set forth below. Mr. Garay has been admitted for chest pain. He has prior hx of CAD and stents. He is afebrile with stable vitals. He is ready for discharge home. Exam Alert. Comfortable Mucus membrane dry Heart not tachy Lungs no wheeze Plan D/C home today Resume meds as before (Brlinta at 60mg BID - per cardiology as he is greater than one year out from stenting). Did not want flu vaccine.
--- NOTE | 2017-03-29 12:50 | Event Note ---
Date of Encounter: 03/29/17 Time of Encounter: 12:00 - Cardiology Event Note TTE with LEVF 60%, mild diastolic dysfunction, mild TR, mild IL, all haely with normal motion. TTE results discussed and reviewed with patient and . Again, cardiology will sign off and will follow in outpatient setting. Follow up set per cardiology office.
== END 2017-03-29 14:05 | disposition home or self-care (01) | DRG 303 ==
LOC: EMEROO 12:36 → 2NENU 12:36 → SUATTDRO 17:16
PROVIDERS: ADMIT Internal Medicine; ATTEND Internal Medicine

== ENCOUNTER 2017-09-28 15:49 | Inpatient (IN) ==
--- NOTE | 2017-09-28 16:11 | Emergency Department Note ---
Disposition Clinical Impression: Immunosuppressed status Fever Qualifiers: Encounter type: initial encounter UTI (urinary tract infection) Qualifiers: Urinary tract infection type: site unspecified Hematuria presence: with hematuria Qualified Code(s): N39.0 - Urinary tract infection, site not specified Disposition: Admitted As Inpatient Condition: Fair Time of Disposition: 17:39 General Adult HPI - General Chief complaint: ED Fever Stated complaint: Weakness,chills, just don't feel well,arthritis Time Seen by Provider: 09/28/17 16:10 Source: patient Limitations: no limitations Nursing Notes Reviewed: Yes Vital Signs Reviewed: Yes - History of Present Illness HPI Narrative: Mr. Garay presents from home for evaluation of abrupt onset chills and abrupt onset worsening of chronic arthritic pain. Onset this morning. Patient's pain is such that he preferred taking the elevator to his appointment with Dr. Arias, which is unusual as he prefers stairs. Joint pain is most prominent in right hip, BL kees, left foot and toew. Patient has a history of psoriatic arthritis. Last humara injection was 8 days ago. Discontinued methyltrexate 2.5 months ago while undergoing treatment for H. Pylori gastritis. Hx BPH; cystoscopy 2wks ago with planned de-bulking surgery in the future. ROS: Pos: chills, increasing joint pain. Neg: chest pain, dyspnea, diaphoresis, nausea, vomiting, abdominal pain, unusual back pain, burning with urination. No falls or open wounds. Pain Scale: 8 - Related Data Home Medications Medication Instructions Recorded Confirmed Aspirin [Lo-Dose Aspirin EC] 81 mg PO DAILY 03/27/17 09/28/17 Brimonidine Tartrate/Timolol 1 drop BOTH EYES BID 03/27/17 09/28/17 [Combigan 0.2%-0.5% Eye Drops] Latanoprost [Xalatan] 1 drop BOTH EYES QPM 03/27/17 09/28/17 Lisinopril 2.5 mg PO DAILY 03/27/17 09/28/17 Adalimumab [Humira] 40 mg SQ Q2W 07/27/17 09/28/17 Metoprolol XL (24 HR) Succ [Toprol 25 mg PO HS 07/27/17 09/28/17 XL] Allergies Allergy/AdvReac Type Severity Reaction Status Date / Time ciprofloxacin [From Cipro] Allergy Weakness Verified 09/28/17 16:57 ibuprofen [From Motrin] Allergy See Verified 09/28/17 16:57 Comments All systems ED: reviewed and negative except as stated. Review of Systems: As Per HPI Past Medical History - Past Medical History Medical history: Reports: arthritis, coronary artery disease, glaucoma, kidney stones, RA, other Surgical history: Reports: angioplasty/stent, appendectomy, herniorrhaphy Psychiatric history: Reports: no psych history - Social History Smoking Status: Former smoker Smokeless Tobacco Status: No Alcohol use: Reports: none Drug use: Reports: none Physical Exam Vital Signs Reviewed General: Patient is alert, oriented, and in no acute distress. Head: atraumatic, normocephalic Eye: normal appearance, no scleral icterus, no conjunctival injection ENT: mucous membranes moist, normal external ear exam Neck: normal inspection, trachea midline, full ROM Chest: normal inspection, symmetric chest rise Respiratory: Good respiratory effort. Bilateral breath sounds are clear without wheezing, crackles, or rhonchi. Cardiovascular: Regular rate and rhythm. No clicks, rubs, gallops, or murmors. Normal heart sounds. Abdomen: Bowel sounds present normoactive x-4 quadrants. Abdomen is soft, nondistended, and nontender. No guarding or rebound. No organomegaly noted. Musculoskeletal: Spontaneously moving all extremities. No erythema, swelling, or warmth over right hip/greater trochanger, bilateral knees, left ankle/foot/ toes. Skin: warm, dry, intact. Small psoriatic patches on patient's left dorsal foot - clean and intact, no surrounding erythema, warmth, or swelling. Neuro: Alert and oriented x4. Sensation light touch intact. Psych: Patient's affect is appropriate for situation. - General Limitations: no limitations General appearance: alert Course Course Narrative: Patient has fever currently without a source on physical exam. CXR unremarkable. UA concerning for UTI. Will begin IV rocephin. Given patient's current immonocompromised status, fever to 103F, and asymptomatic UTI , will admit for continued IV antibiotics with cultures pending. Patient and are in agreement to this plan. Chest X-Ray 09/28/17 16:37 IMPRESSION: No acute cardiopulmonary process D/ / Jose C Osorio MD / Jose C Osorio MD Interpreting Provider: Jose C Osorio MD Vital Signs Temperature 103 F H 09/28/17 16:00 Pulse Rate 93 09/28/17 16:00 Respiratory Rate 20 09/28/17 16:00 Blood Pressure 138/75 09/28/17 16:00 O2 Sat by Pulse Oximetry 99 09/28/17 16:00 Temperature 100.4 F H 09/28/17 18:38 Pulse Rate 77 09/28/17 18:29 Respiratory Rate 14 09/28/17 18:29 Blood Pressure 121/64 09/28/17 18:29 O2 Sat by Pulse Oximetry 96 09/28/17 18:29 Oxygen Delivery Oxygen Delivery Room Air Medical Decision Making - Lab Data Result diagrams: 09/28/17 16:38 09/28/17 16:38 Lab Results 09/28/17 09/28/17 09/28/17 Range/Units 16:38 16:38 16:49 WBC 17.7 H (4.3-11.1) K/mcL RBC 3.52 L (4.19-5.50) M/mcL Hgb 11.4 L (12.9-16.9) g/dL Hct 34.1 L (37.5-50.1) % MCV 96.9 (83.0-100.0) fL MCH 32.4 (28.0-33.3) pg MCHC 33.4 (31.6-35.5) g/dL RDW 14.5 (11.5-14.5) % Plt Count 340 (140-400) K/mcL MPV 9.6 (9.4-12.4) fL Immature Gran % 0.8 (0-4) % Seg Neutrophils % 87.1 % Lymphocytes % 4.6 % Monocytes % 7.2 % Eosinophils % 0.1 % Basophils % 0.2 % Neutrophils # 15.4 H (1.6-8.9) K/mcL Lymphocytes # 0.8 (0.6-4.6) K/mcL Monocytes # 1.3 (0.0-1.3) K/mcL Eosinophils # 0.0 (0.0-0.6) K/mcL Basophils # 0.0 (0.0-0.2) K/mcL Sodium 134 L (136-145) mEq/L Potassium 3.9 (3.5-5.1) mEq/L Chloride 101 (98-107) mEq/L Carbon Dioxide 24 (23-29) mEq/L BUN 24 H (8-23) mg/dL Creatinine 1.09 (0.70-1.30) mg/dL Est GFR ( Amer) > 60 (> 60) Est GFR (Non-Af Amer) > 60 (> 60) BUN/Creatinine Ratio 22 (6-26) Glucose 109 H (70-105) mg/dL Calculated Osmolality 283 (280-300) Lactic Acid 0.9 (0.5-2.2) mmol/L Calcium 9.2 (8.6-10.3) mg/dL Urine Color (Yellow) Urine Clarity (Clear) Urine pH (5.0-8.0) pH Units Ur Specific [place] (1.010-1.025) Urine Protein (Neg-Trace) mg/dL Urine Glucose (UA) (Normal) mg/dL Urine Ketones (Negative) mg/dL Urine Blood (Negative) Urine Nitrite (Negative) Urine Bilirubin (Negative) Urine Urobilinogen (Normal) mg/dL Ur Leukocyte Esterase (Negative) Urine Microscopic RBC (0-3) per hpf Urine Microscopic WBC (0-3) per hpf Ur Squamous Epith Cells (None-Few) per lpf Urine Bacteria (None-Few) per hpf Hyaline Casts (None-Few) per lpf 09/28/17 Range/Units 17:03 WBC (4.3-11.1) K/mcL RBC (4.19-5.50) M/mcL Hgb (12.9-16.9) g/dL Hct (37.5-50.1) % MCV (83.0-100.0) fL MCH (28.0-33.3) pg MCHC (31.6-35.5) g/dL RDW (11.5-14.5) % Plt Count (140-400) K/mcL MPV (9.4-12.4) fL Immature Gran % (0-4) % Seg Neutrophils % % Lymphocytes % % Monocytes % % Eosinophils % % Basophils % % Neutrophils # (1.6-8.9) K/mcL Lymphocytes # (0.6-4.6) K/mcL Monocytes # (0.0-1.3) K/mcL Eosinophils # (0.0-0.6) K/mcL Basophils # (0.0-0.2) K/mcL Sodium (136-145) mEq/L Potassium (3.5-5.1) mEq/L Chloride (98-107) mEq/L Carbon Dioxide (23-29) mEq/L BUN (8-23) mg/dL Creatinine (0.70-1.30) mg/dL Est GFR ( Amer) (> 60) Est GFR (Non-Af Amer) (> 60) BUN/Creatinine Ratio (6-26) Glucose (70-105) mg/dL Calculated Osmolality (280-300) Lactic Acid (0.5-2.2) mmol/L Calcium (8.6-10.3) mg/dL Urine Color Yellow (Yellow) Urine Clarity Turbid A (Clear) Urine pH 6.0 (5.0-8.0) pH Units Ur Specific [place] 1.022 (1.010-1.025) Urine Protein 30 H (Neg-Trace) mg/dL Urine Glucose (UA) Normal (Normal) mg/dL Urine Ketones Negative (Negative) mg/dL Urine Blood Moderate H (Negative) Urine Nitrite Positive A (Negative) Urine Bilirubin Negative (Negative) Urine Urobilinogen Normal (Normal) mg/dL Ur Leukocyte Esterase Large H (Negative) Urine Microscopic RBC 5-15 H (0-3) per hpf Urine Microscopic WBC TNTC H (0-3) per hpf Ur Squamous Epith Cells Moderate H (None-Few) per lpf Urine Bacteria Many H (None-Few) per hpf Hyaline Casts None Seen (None-Few) per lpf
[2017-09-28] MEDS ORDERED: Acetaminophen 325 MG TABLET PO ONE (16:37)
[2017-09-28] MEDS ORDERED: *HR* HYDROcodone/Acet 5/325 mg TABLET PO ONE (16:38)
[2017-09-28 16:52] LABS: Basophils % 0.2 %; Eosinophils % 0.1 %; Hematocrit 34.1 % (37.5-50.1); Hemoglobin 11.4 g/dL (12.9-16.9); Immature Granulocytes % 0.8 % (0-4); Lymphocytes # 0.8 K/mcL (0.6-4.6); Lymphocytes % 4.6 %; Mean Corpuscular HGB Conc 33.4 g/dL (31.6-35.5); Mean Corpuscular Hemoglobin 32.4 pg (28.0-33.3); Mean Corpuscular Volume 96.9 fL (83.0-100.0); Mean Platelet Volume 9.6 fL (9.4-12.4); Monocytes # 1.3 K/mcL (0.0-1.3); Monocytes % 7.2 %; Neutrophils # 15.4 K/mcL (1.6-8.9); Platelet Count 340 K/mcL (140-400); Red Blood Count 3.52 M/mcL (4.19-5.50); Red Cell Distribution Width 14.5 % (11.5-14.5); Segmented Neutrophils % 87.1 %
[2017-09-28 17:12] LABS: Bilirubin,Urine Negative (Negative); Blood,Urine Moderate (Negative); Clarity,Urine Turbid (Clear); Color,Urine Yellow (Yellow); Glucose,Urine (UA) Normal (Normal); Ketones,Urine Negative (Negative); Leukocyte Esterase,Urine Large (Negative); Nitrite,Urine Positive (Negative); Protein,Urine 30 mg/dL (Neg-Trace); Specific Gravity,Urine 1.022 (1.010-1.025); Urobilinogen,Urine Normal (Normal)
[2017-09-28 17:14] LABS: Bacteria,Urine Many per hpf (None-Few); Hyaline Casts,Urine None Seen per lpf (None-Few); Squamous Epithelial Cell,Urine Moderate per lpf (None-Few); WBC,Urine TNTC per hpf (0-3)
[2017-09-28] MEDS ORDERED: 0.9 % Sodium Chloride 1,000 ML IVC ONE (17:22)
[2017-09-28] MEDS ORDERED: cefTRIAXone 2,000 MG in Water for inj. (sterile) 20 ML 20 ML IVP ONE (17:35)
--- NOTE | 2017-09-28 17:36 | Emergency Department Note ---
Disposition Clinical Impression: Immunosuppressed status Fever Qualifiers: Encounter type: initial encounter UTI (urinary tract infection) Qualifiers: Urinary tract infection type: acute cystitis Hematuria presence: without hematuria Qualified Code(s): N30.00 - Acute cystitis without hematuria Disposition: Admitted As Inpatient Condition: Fair General Adult HPI - General Chief complaint: ED Fever Stated complaint: Weakness,chills, just don't feel well,arthritis Time Seen by Provider: 09/28/17 16:10 Source: patient Limitations: no limitations - History of Present Illness Pain Scale: 8 - Related Data Home Medications Medication Instructions Recorded Confirmed Aspirin [Lo-Dose Aspirin EC] 81 mg PO DAILY 03/27/17 09/28/17 Brimonidine Tartrate/Timolol 1 drop BOTH EYES BID 03/27/17 09/28/17 [Combigan 0.2%-0.5% Eye Drops] Latanoprost [Xalatan] 1 drop BOTH EYES QPM 03/27/17 09/28/17 Lisinopril 2.5 mg PO DAILY 03/27/17 09/28/17 Adalimumab [Humira] 40 mg SQ Q2W 07/27/17 09/28/17 Metoprolol XL (24 HR) Succ [Toprol 25 mg PO HS 07/27/17 09/28/17 XL] Allergies Allergy/AdvReac Type Severity Reaction Status Date / Time ciprofloxacin [From Cipro] Allergy Weakness Verified 09/28/17 16:57 ibuprofen [From Motrin] Allergy See Verified 09/28/17 16:57 Comments Past Medical History - Past Medical History Medical history: Reports: arthritis, coronary artery disease, glaucoma, kidney stones, RA, other Surgical history: Reports: angioplasty/stent, appendectomy, herniorrhaphy Psychiatric history: Reports: no psych history - Social History Smoking Status: Former smoker Smokeless Tobacco Status: No Alcohol use: Reports: none Drug use: Reports: none Physical Exam - General Limitations: no limitations General appearance: alert Course Vital Signs Temperature 103 F H 09/28/17 16:00 Pulse Rate 93 09/28/17 16:00 Respiratory Rate 20 09/28/17 16:00 Blood Pressure 138/75 09/28/17 16:00 O2 Sat by Pulse Oximetry 99 09/28/17 16:00 Temperature 103 F H 09/28/17 20:42 Pulse Rate 97 09/28/17 20:42 Respiratory Rate 18 09/28/17 20:42 Blood Pressure 160/77 09/28/17 20:42 O2 Sat by Pulse Oximetry 94 09/28/17 20:42 Oxygen Delivery Oxygen Delivery Room Air Medical Decision Making - Lab Data Result diagrams: 09/28/17 16:38 09/28/17 16:38 Lab Results 09/28/17 09/28/17 09/28/17 Range/Units 16:38 16:38 16:49 WBC 17.7 H (4.3-11.1) K/mcL RBC 3.52 L (4.19-5.50) M/mcL Hgb 11.4 L (12.9-16.9) g/dL Hct 34.1 L (37.5-50.1) % MCV 96.9 (83.0-100.0) fL MCH 32.4 (28.0-33.3) pg MCHC 33.4 (31.6-35.5) g/dL RDW 14.5 (11.5-14.5) % Plt Count 340 (140-400) K/mcL MPV 9.6 (9.4-12.4) fL Immature Gran % 0.8 (0-4) % Seg Neutrophils % 87.1 % Lymphocytes % 4.6 % Monocytes % 7.2 % Eosinophils % 0.1 % Basophils % 0.2 % Neutrophils # 15.4 H (1.6-8.9) K/mcL Lymphocytes # 0.8 (0.6-4.6) K/mcL Monocytes # 1.3 (0.0-1.3) K/mcL Eosinophils # 0.0 (0.0-0.6) K/mcL Basophils # 0.0 (0.0-0.2) K/mcL Sodium 134 L (136-145) mEq/L Potassium 3.9 (3.5-5.1) mEq/L Chloride 101 (98-107) mEq/L Carbon Dioxide 24 (23-29) mEq/L BUN 24 H (8-23) mg/dL Creatinine 1.09 (0.70-1.30) mg/dL Est GFR ( Amer) > 60 (> 60) Est GFR (Non-Af Amer) > 60 (> 60) BUN/Creatinine Ratio 22 (6-26) Glucose 109 H (70-105) mg/dL Calculated Osmolality 283 (280-300) Lactic Acid 0.9 (0.5-2.2) mmol/L Calcium 9.2 (8.6-10.3) mg/dL Urine Color (Yellow) Urine Clarity (Clear) Urine pH (5.0-8.0) pH Units Ur Specific [place] (1.010-1.025) Urine Protein (Neg-Trace) mg/dL Urine Glucose (UA) (Normal) mg/dL Urine Ketones (Negative) mg/dL Urine Blood (Negative) Urine Nitrite (Negative) Urine Bilirubin (Negative) Urine Urobilinogen (Normal) mg/dL Ur Leukocyte Esterase (Negative) Urine Microscopic RBC (0-3) per hpf Urine Microscopic WBC (0-3) per hpf Ur Squamous Epith Cells (None-Few) per lpf Urine Bacteria (None-Few) per hpf Hyaline Casts (None-Few) per lpf 09/28/17 Range/Units 17:03 WBC (4.3-11.1) K/mcL RBC (4.19-5.50) M/mcL Hgb (12.9-16.9) g/dL Hct (37.5-50.1) % MCV (83.0-100.0) fL MCH (28.0-33.3) pg MCHC (31.6-35.5) g/dL RDW (11.5-14.5) % Plt Count (140-400) K/mcL MPV (9.4-12.4) fL Immature Gran % (0-4) % Seg Neutrophils % % Lymphocytes % % Monocytes % % Eosinophils % % Basophils % % Neutrophils # (1.6-8.9) K/mcL Lymphocytes # (0.6-4.6) K/mcL Monocytes # (0.0-1.3) K/mcL Eosinophils # (0.0-0.6) K/mcL Basophils # (0.0-0.2) K/mcL Sodium (136-145) mEq/L Potassium (3.5-5.1) mEq/L Chloride (98-107) mEq/L Carbon Dioxide (23-29) mEq/L BUN (8-23) mg/dL Creatinine (0.70-1.30) mg/dL Est GFR ( Amer) (> 60) Est GFR (Non-Af Amer) (> 60) BUN/Creatinine Ratio (6-26) Glucose (70-105) mg/dL Calculated Osmolality (280-300) Lactic Acid (0.5-2.2) mmol/L Calcium (8.6-10.3) mg/dL Urine Color Yellow (Yellow) Urine Clarity Turbid A (Clear) Urine pH 6.0 (5.0-8.0) pH Units Ur Specific [place] 1.022 (1.010-1.025) Urine Protein 30 H (Neg-Trace) mg/dL Urine Glucose (UA) Normal (Normal) mg/dL Urine Ketones Negative (Negative) mg/dL Urine Blood Moderate H (Negative) Urine Nitrite Positive A (Negative) Urine Bilirubin Negative (Negative) Urine Urobilinogen Normal (Normal) mg/dL Ur Leukocyte Esterase Large H (Negative) Urine Microscopic RBC 5-15 H (0-3) per hpf Urine Microscopic WBC TNTC H (0-3) per hpf Ur Squamous Epith Cells Moderate H (None-Few) per lpf Urine Bacteria Many H (None-Few) per hpf Hyaline Casts None Seen (None-Few) per lpf Attestation Statement - Attestation Attestation: I examined this patient and my medical decision-making was reviewed with the P[employer] INSTRUCTOR/PA/Advanced Practice Nurse/Resident Physician. I agree with the documented findings, disposition and treatment plan as described except to the extent set forth below. The patient does have a temperature of 103 degrees however does not have hypotension and he is alert and oriented but somewhat flushed. He is here with his . Test results do show urinary tract infection and the patient will be started on antibiotics but due to his high fever and his concomitant immunosuppression with his rheumatoid arthritis and use of Humira the patient will be admitted and we will initiate Rocephin 2 g IV 1735
[2017-09-28 17:38] LABS: BUN/Creatinine Ratio 22 (6-26); Blood Urea Nitrogen 24 mg/dL (8-23); Calcium 9.2 mg/dL (8.6-10.3); Carbon Dioxide 24 mEq/L (23-29); Chloride 101 mEq/L (98-107); Glucose 109 mg/dL (70-105); Osmolality,Calculated 283 (280-300); Potassium 3.9 mEq/L (3.5-5.1); Sodium 134 mEq/L (136-145); eGFR For African Americans > 60 (> 60); eGFR For Non-African Americans > 60 (> 60)
--- NOTE | 2017-09-28 20:08 | Internal Med History&Physical ---
Date of Encounter: 09/28/17 Time of Encounter: 20:02 Assessment and Plan (1) Immunosuppressed status Current visit: Yes Status: Acute Patient is on Humira possible immunocompromise (2) UTI (urinary tract infection) Current visit: Yes Status: Acute Acute UTI probably due to BPH with some urinary retention will continue on Rocephin and send for blood culture and urine culture Qualifiers: Urinary tract infection type: acute cystitis Hematuria presence: without hematuria Qualified Code(s): N30.00 - Acute cystitis without hematuria (3) Coronary artery disease Current visit: No Status: Chronic Patient with history of 2 stents denies any chest pain at present Qualifiers: Coronary Disease-Associated Artery/Lesion type: [place] artery [place] vs. transplanted heart: [place] heart Associated angina: with unstable angina Qualified Code(s): I25.110 - Atherosclerotic heart disease of [place] coronary artery with unstable angina pectoris (4) Essential hypertension Current visit: No Status: Chronic Chronic and well controlled (5) Psoriatic arthritis Current visit: Yes Status: Acute Psoriatic arthritis with worsening pain in the right hip knee and foot was started him on nonsteroidal resume home medication (6) Leukocytosis Current visit: Yes Status: Acute Likely due to UTI and possible sepsis Qualifiers: Leukocytosis type: bandemia Qualified Code(s): D72.825 - Bandemia Internal Medicine - H&P: HPI Chief complaint: fever and chills Admitted From: Emergency Dept Plans for Post Hospital Care: Home History of present illness: Mr. Garay is a 66 year old male Patient with history of psoriatic arthritis on Humira, hypertension, CAD had 2 stents in the past, prior kidney stone, patient also has bladder dysfunction. Patient was seen at sampling expert office today in follow-up of worsening arthritis of the right hip, knee and foot but was having fever and chills and then was sent to the emergency room for further evaluation in emergency room temperature 103 evaluation show patient has UTI white count 17, 000 concern for possible sepsis from UTI patient and reports that he has difficulty urinating he has had BPH and was scheduled for procedure at the [facility] [place]. To shrink" the prostate. He does has some urinary retention does not want to see urologist here just wanted to be treated and then keep his appointment at the [facility] Past Med Surg Social Fam HX - Past Medical History Medical history: arthritis, coronary artery disease, glaucoma, kidney stones, RA , other Psychiatric history: no psych history - Past Surgical History Surgical History: angioplasty/stent, appendectomy, herniorrhaphy - Social History Smoking Status: Former smoker Smokeless Tobacco Status: No Alcohol use: none Drug use: none Internal Medicine - H&P: Meds Aspirin [Lo-Dose Aspirin EC] 81 mg PO DAILY 03/27/17 [History] Brimonidine Tartrate/Timolol [Combigan 0.2%-0.5% Eye Drops] 1 drop BOTH EYES BID 03/27/17 [History] Latanoprost [Xalatan] 1 drop BOTH EYES QPM 03/27/17 [History] Lisinopril 2.5 mg PO DAILY 03/27/17 [History] Adalimumab [Humira] 40 mg SQ Q2W 07/27/17 [History] Metoprolol XL (24 HR) Succ [Toprol XL] 25 mg PO HS 07/27/17 [History] 3 Allergy/AdvReac Type Severity Reaction Status Date / Time ciprofloxacin [From Cipro] Allergy Weakness Verified 09/28/17 16:57 ibuprofen [From Motrin] Allergy See Verified 09/28/17 16:57 Comments All Systems PM: A 10-system review of systems was performed and is negative for pertinent findings except as documented above in the HPI. - Constitutional Constitutional: chills, fever(s) - EENT Eyes: no change in vision, no discharge, no pain, no photophobia Ears: no ear discharge, no ear pain, no tinnitus Nose, mouth and throat: no dysphagia, no nasal discharge, no neck pain, no sore throat - Cardiovascular Cardiovascular ROS IM: no chest pain, no diaphoresis, no dyspnea, no lightheadedness, no palpitations, no syncope - Respiratory Respiratory: no cough, no dyspnea, no wheezing, no excessive phlegm production - Gastrointestinal Gastrointestinal: no abdominal pain, no diarrhea, no hematemesis, no hematochezia, no melena, no nausea, no vomiting - Musculoskeletal Musculoskeletal ROS IM: no numbness, no tingling - Integumentary Integumentary IM: no rash, no unusual bruising - Constitutional Vitals: Temp Pulse Resp BP Pulse Ox 100.4 F H 77 14 121/64 96 09/28/17 18:38 09/28/17 18:29 09/28/17 18:29 09/28/17 18:29 09/28/17 18:29 General appearance: Present: mild distress - Head Head exam: Present: atraumatic, normocephalic - Neck Neck exam general surgery: Present: supple, trachea midline. Absent: lymphadenopathy - Respiratory Respiratory exam: Present: CTAB. Absent: accessory muscle use, rales, rhonchi, wheezes - Cardiovascular Cardiovascular exam: Present: RRR, +S1, +S2. Absent: diastolic murmur, gallop, rubs, systolic murmur - GI/Abdominal GI/Abdominal exam: Present: normal bowel sounds, soft, no peritoneal signs. Absent: distended, tenderness Internal Med - H&P Results - Labs CBC & Chem 7: 09/28/17 16:38 09/28/17 16:38
[2017-09-28] MEDS ORDERED: Naloxone 0.4 MG/ML INJ IVP PRN (20:16)
[2017-09-28] MEDS ORDERED: TIMOLOL OP SCH (21:00)
[2017-09-28] MEDS ORDERED: BRIMONIDINE TARTRATE OP SCH (21:00)
[2017-09-28] MEDS: Metoprolol XL (24 HR) Succ 25 MG TAB.ER.24H PO SCH (21:12)
[2017-09-28] MEDS: traMADol 50 MG TABLET PO PRN (21:12)
[2017-09-28] MEDS: Acetaminophen 325 MG TABLET PO PRN (21:12)
[2017-09-28] MEDS: 0.9 % Sodium Chloride 1,000 ML IVC SCH (21:13)
[2017-09-29] MEDS: Acetaminophen 325 MG TABLET PO PRN ×3 (02:27→23:33)
[2017-09-29] MEDS: Latanoprost 2.5 ML BOTTLE BOTH EYES SCH ×2 (03:03→21:52)
[2017-09-29] MEDS: traMADol 50 MG TABLET PO PRN (04:25)
[2017-09-29] MEDS: *HR* Enoxaparin 40 MG/0.4 ML SYRINGE SQ SCH (05:49)
[2017-09-29 06:13] LABS: Hematocrit 32.1 % (37.5-50.1); Hemoglobin 10.9 g/dL (12.9-16.9); Mean Corpuscular Hemoglobin 32.4 pg (28.0-33.3); Mean Corpuscular Volume 95.5 fL (83.0-100.0); Platelet Count 330 K/mcL (140-400); Red Blood Count 3.36 M/mcL (4.19-5.50); Red Cell Distribution Width 14.5 % (11.5-14.5)
[2017-09-29 06:32] LABS: Alanine Aminotransferase 9 Units/L (7-52); Albumin 3.4 g/dL (3.5-5.7); Albumin/Globulin Ratio 1.1 (1.1-2.2); Alkaline Phosphatase 49 Units/L (34-104); Aspartate Amino Transferase 12 Units/L (13-39); BUN/Creatinine Ratio 23 (6-26); Bilirubin,Total 0.3 mg/dL (0.3-1.0); Blood Urea Nitrogen 29 mg/dL (8-23); Calcium 8.4 mg/dL (8.6-10.3); Carbon Dioxide 21 mEq/L (23-29); Chloride 104 mEq/L (98-107); Chol/HDL Ratio 1.7 (0-4.9); Cholesterol 69 mg/dL (< 200); Globulin 3.1 g/dL (2.4-3.5); Glucose 123 mg/dL (70-105); HDL Cholesterol 41 mg/dL (40-59); LDL Cholesterol,Calculated 18 mg/dL (0-99); Magnesium 1.5 mg/dL (1.6-2.6); Osmolality,Calculated 281 (280-300); Potassium 3.7 mEq/L (3.5-5.1); Sodium 132 mEq/L (136-145); Total Protein 6.5 g/dL (6.4-8.9); Triglycerides 51 mg/dL (< 150); eGFR For African Americans > 60 (> 60); eGFR For Non-African Americans 56 (> 60)
--- NOTE | 2017-09-29 07:50 | Urology - Consult Note ---
Date of Encounter: 09/29/17 Time of Encounter: 07:47 - Assessment and Plan (1) Urinary retention Current Visit: Yes Status: Acute Assessment and plan: 66-year-old man with a history of urinary retention. I was able to place a 16- [place] coude catheter. Clear urine returned. I informed the patient that I am not on-call this weekend and it is Dr. Real. If there are other urologic issues, management would need to be coordinated by the primary team as the patient refuses to see the current on-call urologist. Alternatively, consider transfer if there are other urologic issues which need more immediate attention. I would continue the catheter throughout his hospital stay and have him follow-up with his outside urologist for a possible voiding trial or continuation the catheter through the date of his TUNA. (2) UTI (urinary tract infection) Current Visit: Yes Status: Acute Assessment and plan: We will await results from a urine culture now that the catheter is placed. Please call me with any questions, I will be available on 10/02/2017 at 7 AM for further management. Qualifiers: Urinary tract infection type: acute cystitis Hematuria presence: without hematuria Qualified Code(s): N30.00 - Acute cystitis without hematuria Urology CN:HPI Consult date: 09/29/17 Reason for consult Urology: Other (? UTI with sepsis) Requesting physician: Christi Granda History of present illness: 66-year-old man was admitted for fevers. He has a history of BPH and incomplete bladder emptying. A CT scan from July, showed concern for enlarged prostate with multiple bladder diverticula. He has been feeling unwell and was admitted to the hospital with fever and elevated white blood cell count. She has not been able to urinate. He was present seen by Dr. Real with [facility]. Per his report the experience was not to his satisfaction and he proceeded to seek care from an outside urologist at [facility], Dr. De La Cruz. He is scheduled for a TUNA. A bladder scan showed greater than 1000. Past Med Surg Social Fam HX - Past Medical History Medical history: arthritis, coronary artery disease, glaucoma, kidney stones, RA , other Psychiatric history: no psych history - Past Surgical History Surgical History: angioplasty/stent, appendectomy, herniorrhaphy - Social History Smoking Status: Former smoker Smokeless Tobacco Status: No Alcohol use: none Drug use: none - Family History Father Hx Family Cardiac Disorders: Yes (CHF) Mother Hx Family Cardiac Disorders: Yes (Stroke) Medications and Allergies Aspirin [Lo-Dose Aspirin EC] 81 mg PO DAILY 03/27/17 [History] Brimonidine Tartrate/Timolol [Combigan 0.2%-0.5% Eye Drops] 1 drop BOTH EYES BID 03/27/17 [History] Latanoprost [Xalatan] 1 drop BOTH EYES QPM 03/27/17 [History] Lisinopril 2.5 mg PO DAILY 03/27/17 [History] Adalimumab [Humira] 40 mg SQ Q2W 07/27/17 [History] Metoprolol XL (24 HR) Succ [Toprol XL] 25 mg PO HS 07/27/17 [History] 3 Allergy/AdvReac Type Severity Reaction Status Date / Time ciprofloxacin [From Cipro] Allergy Weakness Verified 09/28/17 16:57 ibuprofen [From Motrin] Allergy See Verified 09/28/17 16:57 Comments Review of Systems - Constitutional chills, fever(s) - EENT Nose, mouth and throat: no dizziness - Cardiovascular no chest pain - Respiratory no dyspnea - Gastrointestinal no nausea, no vomiting - Genitourinary no flank pain, no hematuria - Musculoskeletal no back pain - Integumentary no erythema, no rash - Neurological no weakness - Psychiatric no suicidal ideation - Hematologic/Lymphatic no easy bleeding - Allergic/Immunologic no wheezing Exam Initial Vital Signs Temp Pulse Resp BP Pulse Ox 103 F H 93 20 138/75 99 09/28/17 16:00 09/28/17 16:00 09/28/17 16:00 09/28/17 16:00 09/28/17 16:00 - General physical appearance Present: well developed, well nourished, no distress - Eyes Absent: icteric - ENT Present: normal nares - Neck Present: trachea midline - Respiratory Present: normal respiratory effort - Cardiovascular Cardiovascular exam IM: RRR - Abdomen Abdomen: Present: soft, distended (suprapubic distension) - Genitourinary normal penis with no external lesions - Integumentary Present: no rash - Neurologic Present: normal coordination - Musculoskeletal Present: other (normal extremities.) Urology Results - Labs 09/29/17 05:35 09/29/17 05:35 Abnormal lab results WBC 16.3 K/mcL (4.3-11.1) H 09/29/17 05:35 RBC 3.36 M/mcL (4.19-5.50) L 09/29/17 05:35 Hgb 10.9 g/dL (12.9-16.9) L 09/29/17 05:35 Hct 32.1 % (37.5-50.1) L 09/29/17 05:35 Neutrophils # 15.4 K/mcL (1.6-8.9) H 09/28/17 16:38 Sodium 132 mEq/L (136-145) L 09/29/17 05:35 Carbon Dioxide 21 mEq/L (23-29) L 09/29/17 05:35 BUN 29 mg/dL (8-23) H 09/29/17 05:35 Est GFR (Non-Af Amer) 56 (> 60) L 09/29/17 05:35 Glucose 123 mg/dL (70-105) H 09/29/17 05:35 Calcium 8.4 mg/dL (8.6-10.3) L 09/29/17 05:35 Magnesium 1.5 mg/dL (1.6-2.6) L 09/29/17 05:35 AST 12 Units/L (13-39) L 09/29/17 05:35 Albumin 3.4 g/dL (3.5-5.7) L 09/29/17 05:35 Urine Clarity Turbid (Clear) A 09/28/17 17:03 Urine Protein 30 mg/dL (Neg-Trace) H 09/28/17 17:03 Urine Blood Moderate (Negative) H 09/28/17 17:03 Urine Nitrite Positive (Negative) A 09/28/17 17:03 Ur Leukocyte Esterase Large (Negative) H 09/28/17 17:03 Urine Microscopic RBC 5-15 per hpf (0-3) H 09/28/17 17:03 Urine Microscopic WBC TNTC per hpf (0-3) H 09/28/17 17:03 Ur Squamous Epith Cells Moderate per lpf (None-Few) H 09/28/17 17:03 Urine Bacteria Many per hpf (None-Few) H 09/28/17 17:03 Diabetes panel 09/29/17 Range/Units 05:35 Sodium 132 L (136-145) mEq/L Potassium 3.7 (3.5-5.1) mEq/L Chloride 104 (98-107) mEq/L Carbon Dioxide 21 L (23-29) mEq/L BUN 29 H (8-23) mg/dL Creatinine 1.28 (0.70-1.30) mg/dL Glucose 123 H (70-105) mg/dL Calcium 8.4 L (8.6-10.3) mg/dL AST 12 L (13-39) Units/L ALT 9 (7-52) Units/L Alkaline Phosphatase 49 (34-104) Units/L Albumin 3.4 L (3.5-5.7) g/dL Triglycerides 51 (< 150) mg/dL HDL Cholesterol 41 (40-59) mg/dL Calcium panel 09/29/17 Range/Units 05:35 Calcium 8.4 L (8.6-10.3) mg/dL Albumin 3.4 L (3.5-5.7) g/dL Pituitary panel 09/29/17 Range/Units 05:35 Sodium 132 L (136-145) mEq/L Potassium 3.7 (3.5-5.1) mEq/L Chloride 104 (98-107) mEq/L Carbon Dioxide 21 L (23-29) mEq/L BUN 29 H (8-23) mg/dL Creatinine 1.28 (0.70-1.30) mg/dL Glucose 123 H (70-105) mg/dL Calcium 8.4 L (8.6-10.3) mg/dL Adrenal panel 09/29/17 Range/Units 05:35 Sodium 132 L (136-145) mEq/L Potassium 3.7 (3.5-5.1) mEq/L Chloride 104 (98-107) mEq/L Carbon Dioxide 21 L (23-29) mEq/L BUN 29 H (8-23) mg/dL Creatinine 1.28 (0.70-1.30) mg/dL Glucose 123 H (70-105) mg/dL Calcium 8.4 L (8.6-10.3) mg/dL Total Bilirubin 0.3 (0.3-1.0) mg/dL AST 12 L (13-39) Units/L ALT 9 (7-52) Units/L Alkaline Phosphatase 49 (34-104) Units/L Albumin 3.4 L (3.5-5.7) g/dL All other labs normal. - Imaging CT scan - abdomen: report reviewed, image reviewed CT scan - pelvis: report reviewed, image reviewed Procedures:Urology - Cystoscopy Additional comments: Under sterile conditions a 16-Cypriot coude catheter was placed with clear urine returning. Consult Discharge Plan - Plan Referrals: Seven Calles DO [Primary Care Provider] -
[2017-09-29] MEDS ORDERED: CefTRIAXone 1,000 MG VIAL ONE (09:23)
[2017-09-29] MEDS: cefTRIAXone 1,000 MG in Water for inj. (sterile) 20 ML 10 ML IVP SCH (09:30)
--- NOTE | 2017-09-29 09:47 | Internal Med Progress Note ---
Date of Encounter: 09/29/17 Time of Encounter: 09:00 - Assessment and plan (1) UTI (urinary tract infection) Current Visit: Yes Status: Acute Assessment and plan: Acute UTI likely due to urinary retention secondary to BPH. Patient admitted overnight with leukocytosis, fatigue, fevers, chills, rigors and urinary retention. No appreciable improvement to white count today, I could not due to compromised immune system in the setting of UTI. Patient does not appear septic however he is having fevers. Otherwise vitals are stable with a pulse of 73, respiratory rate of 15 and 97% on room air and blood pressure of 115/68 He is currently receiving Rocephin, continue 1 g IV Rocephin Urine cultures and blood cultures pending-monitor cultures and adjust antimicrobial therapy as needed CBC D, BMP in the morning Hedrick catheter Increase IV fluid rate Qualifiers: Urinary tract infection type: acute cystitis Hematuria presence: without hematuria Qualified Code(s): N30.00 - Acute cystitis without hematuria (2) Immunosuppressed status Current Visit: Yes Status: Acute Assessment and plan: Patient is on Humira which is his recent foramina compromise status Continue treatment UTI as planned above CBC D in the morning (3) Psoriatic arthritis Current Visit: Yes Status: Acute Assessment and plan: History of psoriatic arthritis. Continuing to have worsening pain in the right hip knee and foot. Resume home medications Add [place] 5/325 every 6 when necessary for moderate pain Consider adding IV NSAID should pain persist (4) Urinary retention Current Visit: Yes Status: Acute Assessment and plan: Urinary retention secondary to BPH. Continues to have decreased urinary output with only 150 mL of urine charted overnight. However, per my assessment this morning there was greater than 400 mL of dark yellow urine in the Hedrick bag. No changes and renal function, continue to closely monitor, BMP in the morning Continue Hedrick catheter (5) Coronary artery disease Current Visit: Yes Status: Chronic Assessment and plan: Patient with history of CAD, reporting 2 stents previously. Currently denying any chest pain. Continue beta dominic, JIGNA inhibitor, aspirin Qualifiers: Coronary Disease-Associated Artery/Lesion type: [place] artery [place] vs. transplanted heart: [place] heart Associated angina: with unstable angina Qualified Code(s): I25.110 - Atherosclerotic heart disease of [place] coronary artery with unstable angina pectoris (6) Essential hypertension Current Visit: Yes Status: Chronic Assessment and plan: History of hypertension. BP stable. Continue beta dominic and JIGNA inhibitor (7) DVT prophylaxis Current Visit: Yes Status: Acute Assessment and plan: Increased immobility due to illness Increased risk for DVT SQ Lovenox - Time Spent With Patient Total time spent is greater than 50% in coordination of care (as documented) at patient's floor/unit and/or counseling patient: Greater than 35 minutes - Subjective Interval history: Patient presents as immunosuppressed due to history of psoriatic arthritis and Humira use. Found to have a urinary tract infection likely due to BPH with urinary retention. Continue to have difficulty with urination since admission requiring placement of a coude catheter per urology. Patient reporting he still feels weak and fatigued. Denies any flank pain or suprapubic pain. His is at bedside and she and the patient are concerned about his elevation in heart rate with a pulse in the 80s and 90s and his blood pressure with SBP being in the low 110's. Still having intermittent fevers, but he is no longer having rigors. Additionally, he is continuing to report increased pain secondary to psoriatic arthritis. He states that the tramadol is not controlling the pain well enough. - Constitutional Vitals: Temp Pulse Resp BP Pulse Ox 99.6 F 71 16 114/65 97 09/29/17 08:04 09/29/17 08:04 09/29/17 08:04 09/29/17 08:04 09/29/17 08:04 General appearance: Present: mild distress - Respiratory Respiratory exam: Present: CTAB. Absent: tachypnea - Cardiovascular Cardiovascular exam: Present: RRR, +S1, +S2. Absent: diastolic murmur, systolic murmur - GI/Abdominal GI/Abdominal exam: Present: normal bowel sounds, soft. Absent: distended, rebound, tenderness, no peritoneal signs - Additional comments: No suprapubic tenderness noted to palpation - Extremities Exam Extremities exam: Present: warm, radial pulses palpable and symmetrical. Absent : calf tenderness, cyanotic, pedal edema - Back Exam Back exam: Absent: CVA tenderness (L), CVA tenderness (R) - Neurological Exam Neurological exam: Present: alert, oriented X3. Absent: facial droop, speech deficit - Skin Skin exam: Present: dry, intact Internal Medicine: Result - Labs CBC & Chem 7: 09/29/17 05:35 09/29/17 05:35 Labs: Short CBC 09/29/17 Range/Units 05:35 WBC 16.3 H (4.3-11.1) K/mcL Hgb 10.9 L (12.9-16.9) g/dL Hct 32.1 L (37.5-50.1) % Plt Count 330 (140-400) K/mcL BMP 09/29/17 05:35 Sodium 132 L Potassium 3.7 Chloride 104 Carbon Dioxide 21 L BUN 29 H Creatinine 1.28 Glucose 123 H Calcium 8.4 L Liver Function 09/29/17 Range/Units 05:35 Total Bilirubin 0.3 (0.3-1.0) mg/dL AST 12 L (13-39) Units/L ALT 9 (7-52) Units/L Alkaline Phosphatase 49 (34-104) Units/L Albumin 3.4 L (3.5-5.7) g/dL - Impressions Impressions Chest X-Ray 09/28/17 16:37 IMPRESSION: No acute cardiopulmonary process D/ / Jose C Osorio MD / Jose C Osorio MD Interpreting Provider: Jose C Osorio MD Consult Discharge Plan - Plan Referrals: Seven Calles DO [Primary Care Provider] -
[2017-09-29] MEDS: Aspirin Enteric Coated 81 MG Tablet PO SCH (10:13)
[2017-09-29] MEDS: 0.9 % Sodium Chloride 1,000 ML IVC SCH ×3 (10:19→21:53)
[2017-09-29] MEDS ORDERED: Acetaminophen IV 500 MG/50 ML INFUS..BTL IVPB ONE (11:07)
[2017-09-29] MEDS: *HR* HYDROcodone/Acet 5/325 mg TABLET PO PRN ×2 (11:12→19:59)
[2017-09-29] MEDS ORDERED: Latanoprost 2.5 ML BOTTLE BOTH EYES SCH (18:00)
--- NOTE | 2017-09-29 19:51 | Event Note ---
Date of Encounter: 09/29/17 Time of Encounter: 19:41 NURSE Lucy bryant notes noted nurse clearly documented that patients does not want to see me for whatever reason at 4;28 am She then send message to DR Herbert which she forward to me I dont underwent why nurse Ayala is ducumenting e mail to nurse airfield manager that i did not follow through coming to speak to who clearly stated that she does not want to speak to me I responded to all her his medical needs and pages to me with regards to jones cath , consult urology and suggested about 5;30 that someone else other than me would see patient in am as shift would change in less than two hours I explained to patient and about diagnosis and findings and plan and she declined urology consult and proceed to tell me details about DR Pacheco which I requested that I was not interested in the detail
[2017-09-29] MEDS: Metoprolol XL (24 HR) Succ 25 MG TAB.ER.24H PO SCH (21:50)
[2017-09-30 05:21] LABS: Basophils % 0.3 %; Eosinophils % 0.2 %; Hematocrit 28.7 % (37.5-50.1); Hemoglobin 9.4 g/dL (12.9-16.9); Immature Granulocytes % 0.7 % (0-4); Lymphocytes % 9.2 %; Mean Corpuscular HGB Conc 32.8 g/dL (31.6-35.5); Mean Corpuscular Hemoglobin 31.4 pg (28.0-33.3); Mean Platelet Volume 10.3 fL (9.4-12.4); Monocytes # 1.2 K/mcL (0.0-1.3); Monocytes % 10.4 %; Platelet Count 258 K/mcL (140-400); Red Blood Count 2.99 M/mcL (4.19-5.50); Red Cell Distribution Width 14.7 % (11.5-14.5); Segmented Neutrophils % 79.2 %
[2017-09-30 05:42] LABS: BUN/Creatinine Ratio 20 (6-26); Blood Urea Nitrogen 21 mg/dL (8-23); Calcium 8.1 mg/dL (8.6-10.3); Carbon Dioxide 23 mEq/L (23-29); Chloride 106 mEq/L (98-107); Glucose 100 mg/dL (70-105); Osmolality,Calculated 281 (280-300); Potassium 3.6 mEq/L (3.5-5.1); Sodium 134 mEq/L (136-145); eGFR For African Americans > 60 (> 60); eGFR For Non-African Americans > 60 (> 60)
[2017-09-30] MEDS: *HR* Enoxaparin 40 MG/0.4 ML SYRINGE SQ SCH (06:27)
[2017-09-30] MEDS: *HR* HYDROcodone/Acet 5/325 mg TABLET PO PRN ×3 (08:42→22:17)
[2017-09-30] MEDS: Aspirin Enteric Coated 81 MG Tablet PO SCH (10:32)
--- NOTE | 2017-09-30 10:32 | Internal Med Progress Note ---
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 Rocephin should provide adequate coverage. Cultures are finalized by tomorrow morning. Continue Hedrick catheter at present. We will likely discharge with Hedrick catheter. He will follow-up with urology in [place]. (2) Coronary artery disease Current Visit: Yes Status: Chronic Assessment and plan: Continue beta blockers Qualifiers: Coronary Disease-Associated Artery/Lesion type: [place] artery [place] vs. transplanted heart: [place] heart Associated angina: with unstable angina Qualified Code(s): I25.110 - Atherosclerotic heart disease of [place] coronary artery with unstable angina pectoris (3) Essential hypertension Current Visit: Yes Status: Chronic Assessment and plan: Hold lisinopril in evidence of hypotension. (4) Immunosuppressed status Current Visit: Yes Status: Acute Assessment and plan: Patient is on Humira. Last dose 09/20/2017. (5) Psoriatic arthritis Current Visit: Yes Status: Acute (6) Urinary retention Current Visit: Yes Status: Acute Assessment and plan: Urinary retention secondary to BPH. There is concern for prostatitis. This may require a prolonged period of antibiotics. (7) DVT prophylaxis Current Visit: Yes Status: Acute Assessment and plan: Increased immobility due to illness Increased risk for DVT SQ Lovenox - Time Spent With Patient Total time spent is greater than 50% in coordination of care (as documented) at patient's floor/unit and/or counseling patient: Greater than 35 minutes (Spent 15 minutes answering questions) - Subjective Interval history: Patient reports profuse sweating and fever. Concerned about hypotension overnight. Requesting intravenous fluids as appetite is poor - Constitutional Vitals: Temp Pulse Resp BP Pulse Ox 97.9 F 79 16 119/73 94 09/30/17 06:54 09/30/17 06:54 09/30/17 06:54 09/30/17 06:54 09/30/17 06:54 General appearance: Present: A&O X 3 Exam: Physical exam Gen: Comfortable, laying in bed, in no visible distress HEENT: Normocephalic, atraumatic. No conjunctival icterus. Moist oral mucosa. Neck: Supple Lungs: Clear to auscultation, no foreign sounds Heart: Normal S1-S2, no murmurs rubs or gallops Abdomen: Normoactive bowel sounds, no guarding rigidity or tenderness Extremities: No edema clubbing or cyanosis Neuro: Alert oriented 3, no focal deficits Skin: No skin lesions Hedrick catheter present Internal Medicine: Result - Labs CBC & Chem 7: 09/30/17 04:33 09/30/17 04:33 Labs: Short CBC 09/30/17 Range/Units 04:33 WBC 11.3 H (4.3-11.1) K/mcL Hgb 9.4 L D (12.9-16.9) g/dL Hct 28.7 L (37.5-50.1) % Plt Count 258 (140-400) K/mcL Neutrophils # 9.0 H (1.6-8.9) K/mcL BMP 09/30/17 04:33 Sodium 134 L Potassium 3.6 Chloride 106 Carbon Dioxide 23 BUN 21 Creatinine 1.04 Glucose 100 Calcium 8.1 L Consult Discharge Plan - Plan Referrals: Seven Calles DO [Primary Care Provider] -
[2017-09-30] MEDS: cefTRIAXone 1,000 MG in Water for inj. (sterile) 20 ML 10 ML IVP SCH (10:33)
[2017-09-30] MEDS: Ringers Solution, Lactated 1,000 ML IVC SCH ×2 (10:52→21:02)
[2017-09-30] MEDS: Acetaminophen 325 MG TABLET PO PRN (17:24)
[2017-09-30] MEDS: Metoprolol XL (24 HR) Succ 25 MG TAB.ER.24H PO SCH (21:02)
[2017-09-30] MEDS: Latanoprost 2.5 ML BOTTLE BOTH EYES SCH (23:21)
[2017-10-01] MEDS: Acetaminophen 325 MG TABLET PO PRN (04:02)
[2017-10-01 05:57] LABS: Basophils % 0.3 %; Eosinophils # 0.1 K/mcL (0.0-0.6); Eosinophils % 1.7 %; Hemoglobin 9.4 g/dL (12.9-16.9); Immature Granulocytes % 0.5 % (0-4); Lymphocytes % 13.6 %; Mean Corpuscular HGB Conc 33.6 g/dL (31.6-35.5); Mean Corpuscular Hemoglobin 31.9 pg (28.0-33.3); Mean Corpuscular Volume 94.9 fL (83.0-100.0); Mean Platelet Volume 9.9 fL (9.4-12.4); Monocytes # 0.9 K/mcL (0.0-1.3); Monocytes % 12.3 %; Neutrophils # 5.4 K/mcL (1.6-8.9); Platelet Count 273 K/mcL (140-400); Red Blood Count 2.95 M/mcL (4.19-5.50); Red Cell Distribution Width 14.7 % (11.5-14.5); Segmented Neutrophils % 71.6 %
[2017-10-01] MEDS: *HR* Enoxaparin 40 MG/0.4 ML SYRINGE SQ SCH (06:07)
[2017-10-01] MEDS: *HR* HYDROcodone/Acet 5/325 mg TABLET PO PRN ×3 (06:12→22:18)
[2017-10-01 06:16] LABS: BUN/Creatinine Ratio 16 (6-26); Blood Urea Nitrogen 14 mg/dL (8-23); Calcium 8.2 mg/dL (8.6-10.3); Carbon Dioxide 23 mEq/L (23-29); Chloride 109 mEq/L (98-107); Glucose 102 mg/dL (70-105); Osmolality,Calculated 285 (280-300); Potassium 3.5 mEq/L (3.5-5.1); Sodium 137 mEq/L (136-145); eGFR For African Americans > 60 (> 60); eGFR For Non-African Americans > 60 (> 60)
[2017-10-01] MEDS: Ringers Solution, Lactated 1,000 ML IVC SCH ×2 (07:38→17:38)
[2017-10-01] MEDS: Aspirin Enteric Coated 81 MG Tablet PO SCH (10:11)
[2017-10-01] MEDS: cefTRIAXone 1,000 MG in Water for inj. (sterile) 20 ML 10 ML IVP SCH (10:11)
--- NOTE | 2017-10-01 10:28 | Internal Med Progress Note ---
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 Rocephin should provide adequate coverage. Cultures will finalize today hopefully. Considering ongoing fever, we will switch to oral antibiotics once cultures are finalized. Continue Hedrick catheter at present. We will likely discharge with Hedrick catheter. He will follow-up with urology in [place]. (2) Coronary artery disease Current Visit: Yes Status: Chronic Assessment and plan: Continue beta blockers Qualifiers: Coronary Disease-Associated Artery/Lesion type: [place] artery [place] vs. transplanted heart: [place] heart Qualified Code(s): I25.110 - Atherosclerotic heart disease of [place] coronary artery with unstable angina pectoris (3) Essential hypertension Current Visit: Yes Status: Chronic Assessment and plan: Hold lisinopril in evidence of hypotension. (4) Immunosuppressed status Current Visit: Yes Status: Acute Assessment and plan: Patient is on Humira. Last dose 09/20/2017. (5) Psoriatic arthritis Current Visit: Yes Status: Acute Assessment and plan: History of psoriatic arthritis. Continuing to have worsening pain in the right hip knee and foot. Resume home medications Add [place] 5/325 every 6 when necessary for moderate pain Consider adding IV NSAID should pain persist (6) Urinary retention Current Visit: Yes Status: Acute Assessment and plan: Urinary retention secondary to BPH. There is concern for prostatitis. This may require a prolonged period of antibiotics. (7) DVT prophylaxis Current Visit: Yes Status: Acute Assessment and plan: Increased immobility due to illness Increased risk for DVT SQ Lovenox - Time Spent With Patient Total time spent is greater than 50% in coordination of care (as documented) at patient's floor/unit and/or counseling patient: 25 - 35 minutes - Subjective Interval history: There were no events overnight. Appetite is 15% . - Constitutional Vitals: Temp Pulse Resp BP Pulse Ox 97.8 F 60 16 129/76 95 10/01/17 07:04 10/01/17 07:04 10/01/17 07:04 10/01/17 07:04 10/01/17 07:04 General appearance: Present: A&O X 3 Exam: Physical exam Gen: Comfortable, laying in bed, in no visible distress HEENT: Normocephalic, atraumatic. No conjunctival icterus. Moist oral mucosa. Neck: Supple Lungs: Clear to auscultation, no foreign sounds Heart: Normal S1-S2, no murmurs rubs or gallops Abdomen: Normoactive bowel sounds, no guarding rigidity or tenderness Extremities: No edema clubbing or cyanosis Neuro: Alert oriented 3, no focal deficits Skin: No skin lesions Internal Medicine: Result - Labs CBC & Chem 7: 10/01/17 05:40 10/01/17 05:40 Labs: Short CBC 10/01/17 Range/Units 05:40 WBC 7.6 (4.3-11.1) K/mcL Hgb 9.4 L (12.9-16.9) g/dL Hct 28.0 L (37.5-50.1) % Plt Count 273 (140-400) K/mcL Neutrophils # 5.4 (1.6-8.9) K/mcL BMP 10/01/17 05:40 Sodium 137 Potassium 3.5 Chloride 109 H Carbon Dioxide 23 BUN 14 Creatinine 0.85 Glucose 102 Calcium 8.2 L Consult Discharge Plan - Plan Referrals: Seven Calles DO [Primary Care Provider] -
[2017-10-01] MEDS: Cefdinir 300 MG CAPSULE PO SCH (22:18)
[2017-10-01] MEDS: Metoprolol XL (24 HR) Succ 25 MG TAB.ER.24H PO SCH (22:18)
[2017-10-01] MEDS: Latanoprost 2.5 ML BOTTLE BOTH EYES SCH (23:42)
[2017-10-02] MEDS: Ringers Solution, Lactated 1,000 ML IVC SCH (03:57)
[2017-10-02] MEDS: *HR* HYDROcodone/Acet 5/325 mg TABLET PO PRN ×2 (04:25→10:28)
[2017-10-02 05:08] LABS: Basophils % 0.6 %; Eosinophils # 0.3 K/mcL (0.0-0.6); Eosinophils % 3.9 %; Hematocrit 28.8 % (37.5-50.1); Hemoglobin 9.5 g/dL (12.9-16.9); Immature Granulocytes % 0.4 % (0-4); Lymphocytes # 1.6 K/mcL (0.6-4.6); Lymphocytes % 22.4 %; Mean Corpuscular Hemoglobin 31.5 pg (28.0-33.3); Mean Corpuscular Volume 95.4 fL (83.0-100.0); Mean Platelet Volume 9.9 fL (9.4-12.4); Monocytes # 0.8 K/mcL (0.0-1.3); Monocytes % 11.5 %; Neutrophils # 4.3 K/mcL (1.6-8.9); Platelet Count 315 K/mcL (140-400); Red Blood Count 3.02 M/mcL (4.19-5.50); Segmented Neutrophils % 61.2 %
[2017-10-02] MEDS: *HR* Enoxaparin 40 MG/0.4 ML SYRINGE SQ SCH (05:26)
[2017-10-02 05:37] LABS: BUN/Creatinine Ratio 14 (6-26); Blood Urea Nitrogen 12 mg/dL (8-23); Calcium 8.2 mg/dL (8.6-10.3); Carbon Dioxide 27 mEq/L (23-29); Chloride 108 mEq/L (98-107); Glucose 88 mg/dL (70-105); Osmolality,Calculated 291 (280-300); Potassium 3.7 mEq/L (3.5-5.1); Sodium 141 mEq/L (136-145); eGFR For African Americans > 60 (> 60); eGFR For Non-African Americans > 60 (> 60)
[2017-10-02 07:45] VITALS: BP 118/70
--- NOTE | 2017-10-02 09:46 | Discharge Summary ---
- NOTES TO OUTPATIENT PROVIDER Notes to Outpatient Provider: Patient admitted with acute cystitis related to BPH. Culture positive for Klebsiella sensitive to cephalosporins. Patient to be discharged on Omnicef. Follow-up with urology regarding BPH. Orders not resulted at time of discharge: Pending orders 09/28/17 20:41 Culture,Blood,Additional [BC] Routine Date of Encounter: 10/02/17 Time of Encounter: 09:43 - Discharge Diagnosis (1) UTI (urinary tract infection) Priority: Primary Status: Acute Qualifiers: Urinary tract infection type: acute cystitis Hematuria presence: without hematuria Qualified Code(s): N30.00 - Acute cystitis without hematuria (2) Urinary retention Priority: Secondary Status: Acute (3) Coronary artery disease Priority: Secondary Status: Chronic Qualifiers: Coronary Disease-Associated Artery/Lesion type: [place] artery [place] vs. transplanted heart: [place] heart Associated angina: with unstable angina Qualified Code(s): I25.110 - Atherosclerotic heart disease of [place] coronary artery with unstable angina pectoris (4) Essential hypertension Priority: Secondary Status: Chronic (5) Immunosuppressed status Priority: Secondary Status: Acute (6) Psoriatic arthritis Priority: Secondary Status: Acute (7) DVT prophylaxis Priority: Secondary Status: Acute Hospital course: Mr. Garay is a 66 year old male patient with history of prosthetic arthritis, essential hypertension, coronary artery disease who was hospitalized with acute cystitis due to his immunocompromised status. He was started on IV antibiotics. His symptoms improved quickly. His urine culture is growing Klebsiella. This is sensitive to cephalosporins. He will be discharged on Omnicef. He is advised to hold his next dose off Humira. He has had trouble with BPH and urinary retention. As such she is being discharged with Jones catheter in place. He will follow up with his urologist for further management. He is actually scheduled for prosthetic surgery for BPH this week but it has been postponed now. He has had a mild flareup of his psoriatic arthritis is due to not taking his methotrexate last week. Since he will also be holding off on Humira, I am prescribing a short course of pain medications for symptom relief. Discharge discussed with: patient, family, nurse - Time Spent with Patient Total time spent providing and/or coordinating discharge services: Greater than 30 minutes (32 min) - Discharge Medications Prescriptions: HYDROcodone/Acet 5/325 mg [[place] 5-325 mg] 1 tab PO Q6HR PRN 5 Days #14 tablet PRN Reason: Moderate Pain Cefdinir [Omnicef] 300 mg PO BID #14 capsule Lactobacillus Acidophilus [Acidophilus Lactobacilli] 1 each PO BID #20 capsule Home Medications: Aspirin [Lo-Dose Aspirin EC] 81 mg PO DAILY 03/27/17 [History] Brimonidine Tartrate/Timolol [Combigan 0.2%-0.5% Eye Drops] 1 drop BOTH EYES BID 03/27/17 [History] Latanoprost [Xalatan] 1 drop BOTH EYES QPM 03/27/17 [History] Lisinopril 2.5 mg PO DAILY 03/27/17 [History] Adalimumab [Humira] 40 mg SQ Q2W 07/27/17 [History] Metoprolol XL (24 HR) Succ [Toprol Xl] 25 mg PO HS 07/27/17 [History] Cefdinir [Omnicef] 300 mg PO BID #14 capsule 10/02/17 [Rx] HYDROcodone/Acet 5/325 mg [[place] 5-325 mg] 1 tab PO Q6HR PRN 5 Days #14 tablet 10/02/17 [Rx] Lactobacillus Acidophilus [Acidophilus Lactobacilli] 1 each PO BID #20 capsule 10/02/17 [Rx] Allergies/Adverse Reactions: 3 Allergy/AdvReac Type Severity Reaction Status Date / Time ciprofloxacin [From Cipro] Allergy Weakness Verified 09/28/17 16:57 ibuprofen [From Motrin] Allergy See Verified 09/28/17 16:57 Comments Date of admission: 09/28/17 20:16 Primary care physician: Seven Calles DO Consults: 09/29/17 07:07 Consult to Urology [CONS] Routine Consulting Provider: Urology Jamee Reason for Consult: Urinary retention, needs jones Time Notified: 07:08 Call Completed: Yes Discharging clinician: Jeff Peacock Anticipated date of discharge: 10/02/17 - Constitutional Vitals: Temp Pulse Resp BP Pulse Ox 98.4 F 83 16 118/70 95 10/02/17 07:44 10/02/17 07:44 10/02/17 07:44 10/02/17 07:44 10/02/17 07:44 General appearance: Present: cooperative, A&O X 3, answers questions appropriately - Neck Neck exam general surgery: Present: supple, trachea midline. Absent: lymphadenopathy - Respiratory Respiratory exam: Present: CTAB. Absent: accessory muscle use, rales, rhonchi, wheezes - Cardiovascular Cardiovascular exam: Present: RRR, +S1, +S2. Absent: diastolic murmur, gallop, rubs, systolic murmur - GI/Abdominal GI/Abdominal exam: Present: normal bowel sounds, soft, no peritoneal signs. Absent: distended, tenderness - Extremities Exam Extremities exam: Present: warm, radial pulses palpable and symmetrical. Absent : calf tenderness, cyanotic, pedal edema - Neurological Exam Neurological exam: Present: CN II-XII intact, oriented X3, no focal deficits. Absent: facial droop, speech deficit - Skin Skin exam: Present: dry, intact - Patient Status Disposition: Home, Self-Care Condition: Fair Functional capacity at discharge: independent ambulation Overall status at discharge: patient is progressing back to baseline - Discharge Instructions Instructions: Urinary Tract Infection in Men (DC) Follow Up With: Seven Calles DO [Primary Care Provider] - (In 1-2 weeks - Family will make appointment if they feel they need it. Thank you) Additional Instructions: Follow-up with your urologist as scheduled - Diet and Activity Activity: increase activity as tolerated Diet: low fat, low cholesterol, low salt diet
[2017-10-02] MEDS: Cefdinir 300 MG CAPSULE PO SCH (09:52)
[2017-10-02] MEDS: Aspirin Enteric Coated 81 MG Tablet PO SCH (09:52)
== END 2017-10-02 11:16 | disposition home or self-care (01) | DRG 726 ==
LOC: EMEROO 15:49 → 3ANU 15:49 → SUATTDRO 20:16
PROVIDERS: ADMIT Nurse Practitioner; ATTEND Internal Medicine